=== PATIENT | female | born 1960 | race Caucasian/White ===

== ENCOUNTER 2024-10-12 07:02 | Outpatient (REF) | payer OTHER, SELFPAY ==
[2024-10-12 07:15] LABS: MANUAL DIFF FLAG NO
[2024-10-12 07:54] LABS: Basophils Percent Auto 0.4 % (0-2); Eosinophils Absolute Auto 0.3 X10*3/uL (0.0-0.4); Eosinophils Percent Auto 4.3 % (0-4); Hematocrit 38.6 % (37.0-47.0); Hemoglobin 13.8 g/dl (12.0-16.0); Imm Gran Abs Auto 0.01 X10*3/uL (0.00-0.03); Imm Gran Pct Auto 0.1 % (0.0-0.4); Lymphocytes Absolute Auto 2.9 X10*3/uL (1.2-4.9); Lymphocytes Percent Auto 40.9 % (20-40); Mean Corpuscular HGB Conc 35.8 g/dl (31.0-35.0); Mean Corpuscular Hemoglobin 31.8 pg (27.0-33.0); Mean Corpuscular Volume 88.9 fL (80.0-98.0); Mean Platelet Volume 10.5 fL (9.4-12.3); Monocytes Absolute Auto 0.7 X10*3/uL (0.1-1.2); Neutrophils Absolute Auto 3.1 x10*3/uL (2.0-8.3); Neutrophils Percent Auto 44.3 % (45-73); Platelet Count 296 X10*3/uL (160-400); Red Blood Count 4.34 X10*6/uL (4.20-5.50); Red Cell Distribution Width 11.9 % (11.0-16.0)
[2024-10-12 08:19] LABS: Alanine Aminotransferase 32 U/L (0-31); Albumin Level 4.2 g/dL (3.5-5.0); Alkaline Phosphatase 68 U/L (39-117); Anion Gap 13 (12-20); Aspartate Amino Transferase 32 U/L (5-31); Bilirubin Total 0.7 mg/dL (0.0-1.0); Blood Urea Nitrogen 27 mg/dL (9-16); Carbon Dioxide 29 mmol/L (22-29); Chloride 101 mmol/L (96-108); Cholesterol 164 mg/dL (<200); Estimated Glomerular Filt Rate > 60; Glucose Fasting 98 mg/dL (60-99); HDL Cholesterol 41 mg/dL (>40); LDL Cholesterol Calculated 94 mg/dL (<100); Potassium 3.9 mmol/L (3.3-5.1); Sodium 139 mmol/L (135-145); Total Protein 7.4 g/dL (6.5-8.0); Triglycerides 145 mg/dL (<150)
[2024-10-12 08:39] LABS: Vitamin D 25-OH Total 50.8 ng/mL (>30)
== END 2024-10-12 07:03 | disposition home or self-care (01) ==
LOC: HO.LAB 07:02
PROVIDERS: PCP Internal Medicine Medical Oncology; Visit Provider Internal Medicine Medical Oncology
DX: E55.9 Vitamin D deficiency, unspecified (principal); E78.5 Hyperlipidemia, unspecified
CPT/HCPCS: 36415; 80053; 80061; 82306; 85025

== ENCOUNTER 2024-11-23 11:25 | Outpatient (REF) | payer OTHER, SELFPAY ==
[2024-11-23 11:41] LABS: MANUAL DIFF FLAG NO
[2024-11-23 11:57] LABS: Basophils Percent Auto 0.2 % (0-2); Eosinophils Absolute Auto 0.3 X10*3/uL (0.0-0.4); Hematocrit 36.7 % (37.0-47.0); Hemoglobin 13.3 g/dl (12.0-16.0); Imm Gran Abs Auto 0.02 X10*3/uL (0.00-0.03); Imm Gran Pct Auto 0.2 % (0.0-0.4); Lymphocytes Absolute Auto 2.7 X10*3/uL (1.2-4.9); Mean Corpuscular HGB Conc 36.2 g/dl (31.0-35.0); Mean Corpuscular Hemoglobin 31.7 pg (27.0-33.0); Mean Corpuscular Volume 87.4 fL (80.0-98.0); Mean Platelet Volume 10.2 fL (9.4-12.3); Monocytes Absolute Auto 0.7 X10*3/uL (0.1-1.2); Monocytes Percent Auto 8.3 % (2-11); Neutrophils Absolute Auto 4.4 x10*3/uL (2.0-8.3); Neutrophils Percent Auto 54.3 % (45-73); Platelet Count 290 X10*3/uL (160-400); Red Cell Distribution Width 11.7 % (11.0-16.0); White Blood Count 8.1 X10*3/uL (4.8-10.8)
[2024-11-23 12:28] LABS: Appearance Urine Clear; Color Urine Yellow; Glucose Urine UA Negative (Negative); Leukocyte Esterase Urine Small (1+) (Negative); Nitrite Urine Negative (Negative); UMIC TRIGGER UA YES; Urine Blood Negative (Negative); Urine Ketones Negative (Negative); Urine Protein Negative (Neg-Trace)
[2024-11-23 12:35] LABS: Parathyroid Hormone Intact 45.2 pg/mL (8.7-77.1)
[2024-11-23 12:42] LABS: Alanine Aminotransferase 26 U/L (0-31); Albumin Level 4.1 g/dL (3.5-5.0); Alkaline Phosphatase 70 U/L (39-117); Anion Gap 11 (12-20); Aspartate Amino Transferase 26 U/L (5-31); Bilirubin Total 0.5 mg/dL (0.0-1.0); Blood Urea Nitrogen 27 mg/dL (9-16); Calcium 10.1 mg/dL (8.4-10.2); Carbon Dioxide 31 mmol/L (22-29); Chloride 100 mmol/L (96-108); Estimated Glomerular Filt Rate > 60; Glucose Random 102 mg/dL (60-115); Phosphorus 2.9 mg/dL (2.7-4.5); Potassium 3.6 mmol/L (3.3-5.1); Sodium 138 mmol/L (135-145); Total Protein 7.2 g/dL (6.5-8.0)
--- OUTSIDE RECORDS SUMMARY | 2024-11-23 12:56 | XMS_ITS | Encounter Summary ---
Author Organization [facility] Address [address] [address] Phone Care Team Providers Care Labour Market Economist Name Role Phone Carroll Gore MD Primary Care Provider Encounter Details Date Type Department Care Team (Late st Contact Info) Description 11/23/2024 Orders Only [facility] [place] [phone] [phone] Oracio Vital MD [facility] [address] Social History Tobacco Use Types Packs/Day Years Used Date Smoking Tobacco: Never Smokeless Tobacco: Never Alcohol Use Standard Drinks/Week Comments Yes 0 (1 standard drink = 0.6 oz pure alcohol) Alcoholic Drinks/day: Occasional social drink Comments Unknown Sex and Gender Information Value Date Recorded Sex Assigned at Not on file Legal Sex Female 5:22 PM EST Gender Identity Not on file Sexual Orientation Not on file documented as of this encounter Plan of Treatment Upcoming Encounters Date Type Department Care Team (Late st Contact Info) Description 12/05/2024 8:20 AM EDT Office Visit [facility] [address] [address] Oracio Vital MD [address] [address] Pending Results Name Type Priority Associated Diagnoses Date /Time Urinalysis with microscopic Lab Routine 11/23/2024 12:03 PM EDT Comprehensive Metabolic Panel Lab Routine 11/23/2024 11:39 AM EDT Phosphorus Lab Routine 11/23/2024 11: 39 AM EDT documented as of this encounter Procedures Procedure Name Priority Date/Time Associated Diagnosis Comments URINALYSIS WITH MICROSCOPIC Routine 11/23/2024 12:03 PM EDT PTH, INTACT (HC) Routine 11/23/2024 11:3 9 AM EDT CBC AND DIFFERENTIAL Routine 11/23/2024 11:39 AM EDT PHOSPHATE ( PHOSPHORUS) Routine 11/23/2024 11:39 AM EDT COMPREHENSIVE METABOLIC PANEL Routine 11/23/2024 11:39 AM EDT documented in this encounter Results * PTH, Intact (11/23/2024 11:39 AM EDT) Parathyroid Hormone, Intact 45.2 8.7 - 77.1 pg/mL See order comments 11/23/2024 11:3 9 AM EDT 11/23/2024 11:39 AM EDT us Oracio Vital MD LAB [id number] SOLICITED RESULTS Final Result [place] See order comments [place] [address] * (ABNORMAL) CBC and Differential (11/23/2024 11:39 AM EDT) WBC 8.1 4.8 - 10.8 X10*3/uL See order comments RBC 4.20 4.20 - 5.50 X10*6/uL See order comments Hgb 13.3 12.0 - 16.0 g/dl See order comments Hematocrit 36.7(L) 37.0 - 47.0 % See order comments MCV 87.4 80.0 - 98.0 fL See order comments MCH 31.7 27.0 - 33.0 pg See order comments MCHC 36.2(H) 31.0 - 35.0 g/dl See order comments RDW 11.7 11.0 - 16.0 % See order comments Platelets 290 160 - 400 X10*3/uL See order comments MPV 10.2 9.4 - 12.3 fL See order comments Neutrophils % Auto 54.3 45 - 73 % See order comments Immature Granulocytes 0.2 0.0 - 0.4 % See order comments Lymphocytes Relative 33.0 20 - 40 % See order comments Monocytes 8.3 2 - 11 % See order comments Eosinophils Relative 4.0 0 - 4 % See order comments Basophils Relative 0.2 0 - 2 % See order comments nRBC Count 0.0 0.0 - 0.2 /100WBC See order comments Neutrophils Absolute 4.4 2.0 - 8.3 x10*3/uL See order comments Immature Grans (Absolute) 0.02 0.00 - 0.03 X10*3/uL See order comments Lymphocytes Absolute 2.7 1.2 - 4.9 X10*3/uL See order comments Monocytes Absolute 0.7 0.1 - 1.2 X10*3/uL See order comments Eosinophils Absolute 0.3 0.0 - 0.4 X10*3/uL See order comments Basophils Absolute 0.0 0.0 - 0.2 X10*3/uL See order comments NRBC Absolute 0.000 0.0 - 0.012 X10*3/uL See order comments 11/23/2024 11:3 9 AM EDT 11/23/2024 11:39 AM EDT us Oracio Vital MD LAB BLOOD ORDERABLES Final Re sult [facility] See order comments [place] [address] documented in this encounter Visit Diagnoses Not on filedocumented in this encounter Care Teams Labour Market Economist Relationship Specialty Start Date End Date Carroll Gore MD [facility] [address] FINNIAMTHADDEUS BECKHAM PCP - General 07/29/20 documented as of this encounter
--- OUTSIDE RECORDS SUMMARY | 2024-11-23 12:56 | XMS_ITS | Clinical Summary ---
Author Organization [facility] Address [address] [facility] [address] [place] [address] Phone Care Team Providers Care Leadership Development Consultant Name Role Phone Carroll Gore MD Primary Care Provider [phone] Allergies Active Allergy Reactions Criticality Noted Date Comments Nitrofurantoin Other (see comments) 07/30/2021 Medications atorvastatin (LIPITOR) 20 MG tablet 1 tablet every night 5 Active cholecalciferol (VITAMIN D-3) 25 MCG (1000 UT) capsule Take 1 capsule by mouth 1 (one) time each day 7 Active loratadine (CLARITIN) 10 MG tablet 1 (one) time each day Active estradiol (ESTRACE) 0.1 MG/GM vaginal cream APPLY 1 GRAM VAGINALLY TWICE A WEEK FOR 90 DAYS 1 Active losartan (COZAAR) 100 MG tablet Take 100 mg by mouth 1 (one) time each day 1 Active calcium carbonate-vitam in D (OSCAL-500) 500-200 MG-UNIT per tablet Take 1 tablet by mouth 1 (one) time each day Active co-enzyme Q-10 30 MG capsule Take 30 mg by mouth 1 (one) time each day Active hydroCHLOROthia zide 25 MG tablet Take 1 tablet (25 mg total) by mouth 1 (one) time each day 30 tablet 11 3 Active Active Problems Problem Noted Date Diagnosed Date Stage 3a chronic kidney disease 11/16/2023 Obstructive nephropathy 11/16/2023 Dyslipidemia 11/16/2023 Hypertension 04/09/2022 Nephrolithiasis 04/08/2021 Simple renal cyst 04/07/2021 Resolved Problems Problem Noted Date Diagnosed Date Resolved Date Bilateral tinnitus 04/09/2022 Cholelithiasis without obstruction 04/09/2022 04/09/2022 Cyst of ovary 04/09/2022 11/16/2023 Diverticulitis 04/09/2022 11/16/2023 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 [address] [place] [phone] Oracio Vital MD from Last 3 Months Immunizations Immunization Administration Dates Next Due Pneumococcal Polysaccharide 05/10/2014, 4 TD Preservative Free 06/20/2020 Family History Medical History Relation Comments Autosomal Dominant Polycystic Kidney Disease Fat her Cancer Father liver Hypertension Father Kidney disease Father polycystic kidne y disease Diabetes Mother Heart disease Mother Hypertension Mother Hypertension Sibling 1 sister Kidney disease Sibling 2 brother/sister Relation Status Comments Father Mother Alive Sibling 1 Sibling 2 Social History Tobacco Use Types Packs/Day Years Used Date Smoking Tobacco: Never Smokeless Tobacco: Never Tobacco Cessation:Counseling Given: No Alcohol Use Standard Drinks/Week Comments Yes 0 (1 standard drink = 0.6 oz pure alcohol) Alcoholic Drinks/day: Occasional social drink Comments Unknown Sex and Gender Information Value Date Recorded Sex Assigned at Not on file Legal Sex Female 5:22 PM EST Gender Identity Not on file Sexual Orientation Not on file Last Filed Vital Signs Vital Sign Reading Time Taken Comments Blood Pressure 118/78 11/16/2023 9:40 AM EDT Pulse 80 11/16/2023 9:40 AM EDT Temperature - - Respiratory Rate - - Oxygen Saturation 98% 11/16/2023 9:40 AM EDT Inhaled Oxygen Concentration - - Weight 54.4 kg (120 lb) 11/16/2023 9:40 AM EDT Height 149.9 cm (4' 11 ) 11/16/2023 9:40 AM EDT Body Mass Index 24.24 11/16/2023 9:40 AM EDT Plan of Treatment Upcoming Encounters Date Type Department Care Team (Late st Contact Info) Description 12/05/2024 8:20 AM EDT Office Visit [facility] [address] [phone] Oracio Vital MD [address] [phone] Health Maintenance Due Date Last Done Comments Breast Cancer Screening 1961 Colorectal Cancer Screening: Annual FOBT 2010 Colorectal Cancer Screening: Colonoscopy 2010 Colorectal Cancer Screening: Sigmoidoscopy 2010 Pneumococcal Vaccine: 50+ Years (3 of 3 - PCV) 05/10/2015 05/10/2014, 04/24/2014 Influenza Vaccine (Season Ended) 2025 Pneumococcal Vaccine: Peds ( 0 to 5 Years) and At-Risk Patients (6 to 49 Years) Discontinued 05/10/2014, 04/24/2014 Hepatitis B Vaccine Aged Out No longe r eligible based on patient's age to complete this topic Procedures Procedure Name Priority Date/Time Associated Diagnosis Comments URINALYSIS WITH MICROSCOPIC Routine 11/23/2024 12:03 PM EDT PHOSPHATE ( PHOSPHORUS) Routine 11/23/2024 11:39 AM EDT COMPREHENSIVE METABOLIC PANEL Routine 11/23/2024 11:39 AM EDT PTH, INTACT (HC) Routine 11/23/2024 11:3 9 AM EDT CBC AND DIFFERENTIAL Routine 11/23/2024 11:39 AM EDT from Last 3 Months Results * PTH, Intact (11/23/2024 11:39 AM EDT) Parathyroid Hormone, Intact 45.2 8.7 - 77.1 pg/mL See order comments 11/23/2024 11:3 9 AM EDT 11/23/2024 11:39 AM EDT us Oracio Vital MD LAB [id number] SOLICITED RESULTS Final Result [place] See order comments [place] [address] * (ABNORMAL) CBC and Differential (11/23/2024 11:39 [...] MD LAB BLOOD ORDERABLES Final Re sult [place] See order comments [place] [address] from Last 3 Months Insurance Comprehensive Benefits Comprehensive Benefits Care Teams Leadership Development Consultant Relationship Specialty Start Date End Date Carroll Gore MD [address] [place] [address] [phone] [place], [place] PCP - General 07/29/20
--- OUTSIDE RECORDS SUMMARY | 2024-11-23 12:57 | XMS_ITS ---
Author Organization Carroll Gore III, MD Address [address] [place] [address] Care Team Providers Care Crosscutter Name Role Phone Carroll Gore Primary Care Provider [phone] Allergies Allergen (clinical drug ingredient) Drug/Non Drug Allergy documented on EMR Reaction Allergy Type Onset Date Status nitrofurantoin Nitrofurantoin Unknown Drug Allergy Active alendronate Alendronate Sodium Unknown Drug Allergy Active Results Component Value Reference Range Notes URINE DIP STICK Reviewed date:10/20/2024 10:13:11 AM Interpretation: Performing Lab: Notes/Report: SG 1.005 1.005 - 1.025 pH 7.0 5.0 - 9.0 NAYELI 70+ Negative - NIT Negative Negative - PRO 15 Negative - Trace GLU Negative Negative - KET negative Negative - UBG 0.2 0.1 - 1.8 CAROLYN Negative 0.2 - 1.3 BLD Negative Negative - Menstrating No REASON FOR VISIT Annual Exam Medications Medication SIG (Take, Route, Frequency, Duration) Notes Start Date End Date Status Atorvastatin Calcium 20 MG TAKE 1 TABLET BY MOUTH EVERY DAY Active Vitamin D 25 MCG (1000 UT) 1 tablet Oral ly Once a day Active hydroCHLOROthiazide 12.5 MG TAKE 1 TABLE T BY MOUTH EVERY DAY IN THE MORNING Active hydroCHLOROthiazide 25 MG TAKE 1 TABLET BY MOUTH 1 TIME EACH DAY. Active Losartan Potassium 100 MG TAKE 1 TABLET BY MOUTH EVERY DAY Active Calcium 1 tab Oral Active Claritin 5 MG 1 tablet Orally as needed Active Social History Tobacco Use: Social History Observation Description Date Details (start date - stop date) Never Smoker NA - NA Sex Assigned At : Social History Observation Description Sex Assigned At Female Tobacco Control (Standard) Question Answer Notes Tobacco use: Nonsmoker Additional Findings: Tobacco non-user Aggressive nonsmoker AUDIT-C (Standard) Question Answer Notes Did you have a drink contain ing alcohol in the past year? Yes How often did you have six o r more drinks on one occasion in the past year? 2 to 4 times a month (2 points) How many drinks did you have on a typical day when you were drinking in the past year? 1 or 2 drinks (0 point) How often did you have a dri nk containing alcohol in the past year? Never (0 point) Points 2 Interpretation Negative Vital Signs Temperature 97.9 degrees Fahrenheit 10/21/19 25 Blood pressure systolic 129 mm Hg 10/21/19 25 Blood pressure diastolic 77 mm Hg 025 Heart Rate 62 /min 10/20/2024 Height 59 in 10/20/2024 Weight 115 lbs 10/20/2024 BMI 23.22 kg/m2 10/20/2024 Encounters Encounter Location Date Provider Diagnosis Carroll Gore III, MD [address] [place] [address] [place] [address] 10/20/2024 Carroll Gore Essential hypertensi on I10 ; Hyperlipidemia, unspecified E78.5 ; Vitamin D deficiency E55.9 ; Calculus of gallbladder without cholecystitis without obstruction K80.20 ; Age-related osteoporosis without current pathological fracture M81.0 ; Hydroureter, left N13.4 and Cholelithiasis K80.20 Assessments Encounter Date Diagnosis (ICD Code) Assessment Notes Treat ment Notes Treatment Clinical Notes 10/20/2024 Essential hypertension (ICD-10 - I10) Her blood pressure is stable at 129/77. Her weight is in the normal range. No change in her regimen was necessary today. As will be followed carefully. 10/20/2024 Hyperlipidemia, unspecified (ICD-10 - E78.5) The current fasting lipid profile shows good control of her lipids. No change in her regimen was necessary. 10/20/2024 Vitamin D deficiency (ICD-10 - E55.9) The current vitamin D level is in the normal range. No change in her dosage was necessary. 10/20/2024 Calculus of gallbladder without cholecystitis without obstruction (ICD-10 - K80.20) There is no discomfort to palpation of the right side of the abdomen. 10/20/2024 Age-related osteoporosis without current pathological fracture (ICD-10 - M81.0) She is going to try alendronate. 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 The left kidney has become atrophic 10/20/2024 Cholelithiasis (ICD-10 - K80.20) She has known documented gallstones. An ultrasound of the abdomen to assess the gallbladder has been ordered. She will return to the office at once if the pain returns. Plan Of Treatment Medication Medication Name Sig Start Date Stop Date Notes Atorvastatin Calcium 20 MG TAKE 1 TABLET BY MOUTH EVERY DAY Vitamin D 25 MCG (1000 UT) 1 tablet Orally Once a day hydroCHLOROthiazide 12.5 MG TAKE 1 TABLE T BY MOUTH EVERY DAY IN THE MORNING hydroCHLOROthiazide 25 MG TAKE 1 TABLET BY MOUTH 1 TIME EACH DAY. Losartan Potassium 100 MG TAKE 1 TABLET BY MOUTH EVERY DAY Calcium 1 tab Oral Claritin 5 MG 1 tablet Orally as needed Pending Test Test Name Order Date PROFILE, FASTING (COMPREHENSIVE METABOLI C) 10/20/2024 CBC w DIFF 10/20/2024 Lipid Panel 10/20/2024 Vitamin D 25-OH Total 10/20/2024 Next Appt Details Follow Up: 4 Months, Reason: OV Provider Name:Carroll Gore, 02/20/2025 04:00:00 PM, [address] [place] [address] [address], [place], [id number], Provider Name:Carroll Gore, 10/22/2025 04:00:00 PM, [address] [place] [address] [address], [place], [id number], Progress Notes * Karen LITTLEDOB:[birth year] (64 yo F)Acc No.[id number]:10/20/2024 Progress Notes Patient:?Karen LITTLE Provider:?Carroll Gore MD :1960???Age:64 Y???Sex:Female D ate:10/20/2024 Address:[address] [place] [address] DR, [id number] Subjective: * Chief Complaints: * ???Annual Exam * HPI: ???Depression Screening:?mammo up to date colono u9p to date, obstetrician/gynecologist alma delia? renal campili, [facility] not known? [employer].? She returns to the office at the age of 64 for her annual physical examination.? She is up-to-date with colonoscopy and mammography.? She is up-to-date with her corporate executive, Dr. Lou. She has no new complaints.? She plans another trip to [facility] next March. She has had no new pain or shortness of breath bleeding cough fever or chest discomforts. She has a new strategic sourcing manager, Dr. Vital. ?PHQ-9?Little interest or pleasure in doing things?Not at all ?Feeling down, depressed, or hopeless?Not at all ?Trouble falling or staying asleep, or sleeping too much?Not at all ?Feeling tired or having little energy?Several days ?Poor appetite or overeating?Not at all ?Feeling bad about yourself or that you are a failure, or have let yourself or your family down?Not at all ?Trouble concentrating on things, such as reading the newspaper or watching television?Not at all ?Moving or speaking so slowly that other people could have noticed; or the opposite, being so fidgety or restless that you have been moving around a lot more than usual?Not at all ?Thoughts that you would be better off or of hurting yourself in some way?Not at all ?Total Score?1 ?Interpretation?Minimal Depression ???COVID-19 Screening:?Questions?Have you had any new onset fever, chills, cough, congestion, sore throat, shortness of breath, muscle aches??No ???SDOH Questions:?SDOH Questions?In the past year have you been worried about losing your housing??No ?In the past year have you or any family members you live with been unable to get any of the following when it was really needed? Check all that apply:?None * ROS:?General/Constitutional:?pain?only normal aches and pains.?Chills?denies.?Fatigue?admits.?Fever?denies.?ENT:?Decreased hearing?denies.?Respiratory:?Cough?denies.?Cardiovascular:?Chest pain with exertion?denies.?Dyspnea on exertion?denies.?Shortness of breath?denies.?Gastrointestinal:?Constipation?occasional.?Decreased appetite?denies.?Diarrhea?denies.?Heartburn?occasional.?Nausea?denies.?Rectal bleeding?denies.?Vomiting?denies.?Hematology:?bruising?denies.?petechiae?denies.?Swollen glands?none have been noted.?Genitourinary:?Frequent urination?at night.?Musculoskeletal:?Muscle aches?denies.?Painful joints?denies.?Sciatica?denies.?Weakness?denies.?Skin:?Itching?denies.?Rash?denies.?Skin lesion(s)?denies.?Neurologic:?Difficulty speaking?denies.?Dizziness?denies.?Headache?denies.?Low back pain?denies.?Psychiatric:?Depressed mood?denies.? * Medical History:? * Surgical History:?laparotomy for mesenteric fibrosis /2009No history * Hospitalization/Major Diagno stic Procedure:?No history * Family History:?Father: dece ased 74 yrs, kidney disease, hypertension, hyperlipidemia, liver cancer, diagnosed with HTN, Hyperlipidemia.?Mother: alive 81 yrs, diabetes mellitus, hypertension, rheumatoid arthritis, hyperlipidemia, cataract, diagnosed with Hyperlipidemia, DM, HTN.?1 brother(s) , 1 sister(s) . .? A brother was diagnosed with hepatitis as a child. A sister was diagnosed with hypertension. She has no children. * Social History:?Tobacco Use:?Tobacco Control (Standard)?Tobacco use:?Nonsmoker ?Additional Findings: Tobacco non-user?Aggressive nonsmoker ???Drugs/Alcohol:?Drugs?Have you used drugs other than those for medical reasons in the past 12 months??No ???Drug/Alcohol:?AUDIT-C (Standard)?Did you have a drink containing alcohol in the past year??Yes ?How often did you have six or more drinks on one occasion in the past year??2 to 4 times a month (2 points) ?How many drinks did you have on a typical day when you were drinking in the past year??1 or 2 drinks (0 point) ?How often did you have a drink containing alcohol in the past year??Never (0 point) ?Points?2 ?Interpretation?Negative ???She is working and has no children. She was [place]. * Medications:?TakingLosartan Potassium 100 MG Tablet TAKE 1 TABLET BY MOUTH EVERY DAY Calcium 1 tab Oral Claritin 5 MG Tablet Chewable 1 tablet Orally as needed Vitamin D 25 MCG (1000 UT) Tablet 1 tablet Orally Once a day Atorvastatin Calcium 20 MG Tablet TAKE 1 TABLET BY MOUTH EVERY DAY hydroCHLOROthiazide 25 MG Tablet TAKE 1 TABLET BY MOUTH 1 TIME EACH DAY. Taking Losartan Potassium 100 MG Tablet TAKE 1 TABLET BY MOUTH EVERY DAY Taking Calcium 1 tab Oral Taking Claritin 5 MG Tablet Chewable 1 tablet Orally as needed Taking Vitamin D 25 MCG (1000 UT) Tablet 1 tablet Orally Once a day Taking Atorvastatin Calcium 20 MG Tablet TAKE 1 TABLET BY MOUTH EVERY DAY Taking hydroCHLOROthiazide 25 MG Tablet TAKE 1 TABLET BY MOUTH 1 TIME EACH DAY. DiscontinuedPriLOSEC OTC 20 MG Tablet Delayed Release 1 tablet Orally as needed hydroCHLOROthiazide 12.5 MG Tablet TAKE 1 TABLET BY MOUTH EVERY DAY IN THE MORNING Medication List reviewed and reconciled with the patientDiscontinued PriLOSEC OTC 20 MG Tablet Delayed Release 1 tablet Orally as needed Discontinued hydroCHLOROthiazide 12.5 MG Tablet TAKE 1 TABLET BY MOUTH EVERY DAY IN THE MORNING Medication List reviewed and reconciled with the patient * Allergies:?NitrofurantoinAle ndronate Sodiumno[Allergies Verified] Objective: * Vitals:?Ht: 59, Wt: 115, BMI :23.22, BP: 129/77, HR: 62, Temp: 97.9, Wt-k.16. * ???Past Orders: Lab:Complete Blood Count Aut o Diff * Collection Date 10/12/2024 04/18/2024 11/10/2022 Collection Time 07:14 AM 07:48 AM 07:23 AM Order Date 10/12/2024 04/18/2024 11/10/2022 White Blood Count 7.0 (Ref Range: 4.8-10.8 X10*3/uL) 7.5 (Ref Range: 4.8-10.8 X10*3/uL) 7.6 (Ref Range: 4.8-10.8 X10*3/uL) Red Blood Count 4.34 (Ref Range: 4.20-5.50 X10*6/uL) 4.37 (Ref Range: 4.20-5.50 X10*6/uL) 4.44 (Ref Range: 4.20-5.50 X10*6/uL) Hemoglobin 13.8 (Ref Range: 12.0-16.0 g/dl) 13.8 (Ref Range: 12.0-16.0 g/dl) 13.7 (Ref Range: 12.0-16.0 g/dl) Hematocrit 38.6 (Ref Range: 37.0-47.0 %) 39.5 (Ref Range: 37.0-47.0 %) 40.1 (Ref Range: 37.0-47.0 %) Mean Corpuscular Volume 88.9 (Ref Range: 80.0-98.0 fL) 90.4 (Ref Range: 80.0-98.0 fL) 90.3 (Ref Range: 80.0-98.0 fL) Mean Corpuscular Hemoglobin 31.8 (Ref Range: 27.0-33.0 pg) 31.6 (Ref Range: 27.0-33.0 pg) 30.9 (Ref Range: 27.0-33.0 pg) Mean Corpuscular HGB Conc 35.8?H (Ref Range: 31.0-35.0 g/dl) 34.9 (Ref Range: 31.0-35.0 g/dl) 34.2 (Ref Range: 31.0-35.0 g/dl) Red Cell Distribution Width 11.9 (Ref Range: 11.0-16.0 %) 11.9 (Ref Range: 11.0-16.0 %) 11.6 (Ref Range: 11.0-16.0 %) Platelet Count 296 (Ref Range: 160-400 X10*3/uL) 282 (Ref Range: 160-400 X10*3/uL) 298 (Ref Range: 160-400 X10*3/uL) Mean Platelet Volume 10.5 (Ref Range: 9.4-12.3 fL) 10.7 (Ref Range: 9.4-12.3 fL) 10.3 (Ref Range: 9.4-12.3 fL) Neutrophils Percent Auto 44.3?L (Ref Range: 45-73 %) 47.7 (Ref Range: 45-73 %) 46.6 (Ref Range: 45-73 %) Imm Gran Pct Auto 0.1 (Ref Range: 0.0-0.4 %) 0.3 (Ref Range: 0.0-0.4 %) 0.4 (Ref Range: 0.0-0.4 %) Lymphocytes Percent Auto 40.9?H (Ref Range: 20-40 %) 38.3 (Ref Range: 20-40 %) 39.7 (Ref Range: 20-40 %) Monocytes Percent Auto 10.0 (Ref Range: 2-11 %) 9.8 (Ref Range: 2-11 %) 9.7 (Ref Range: 2-11 %) Eosinophils Percent Auto 4.3?H (Ref Range: 0-4 %) 3.5 (Ref Range: 0-4 %) 3.2 (Ref Range: 0-4 %) Basophils Percent Auto 0.4 (Ref Range: 0-2 %) 0.4 (Ref Range: 0-2 %) 0.4 (Ref Range: 0-2 %) NRBC Pct Auto 0.0 (Ref Range: 0.0-0.2 /100WBC) 0.0 (Ref Range: 0.0-0.2 /100WBC) 0.0 (Ref Range: 0.0-0.2 /100WBC) Neutrophils Absolute Auto 3.1 (Ref Range: 2.0-8.3 x10*3/uL) 3.6 (Ref Range: 2.0-8.3 x10*3/uL) 3.6 (Ref Range: 2.0-8.3 x10*3/uL) Imm Gran Abs Auto 0.01 (Ref Range: 0.00-0.03 X10*3/uL) 0.02 (Ref Range: 0.00-0.03 X10*3/uL) 0.03 (Ref Range: 0.00-0.03 X10*3/uL) Lymphocytes Absolute Auto 2.9 (Ref Range: 1.2-4.9 X10*3/uL) 2.9 (Ref Range: 1.2-4.9 X10*3/uL) 3.0 (Ref Range: 1.2-4.9 X10*3/uL) Monocytes Absolute Auto 0.7 (Ref Range: 0.1-1.2 X10*3/uL) 0.7 (Ref Range: 0.1-1.2 X10*3/uL) 0.7 (Ref Range: 0.1-1.2 X10*3/uL) Eosinophils Absolute Auto 0.3 (Ref Range: 0.0-0.4 X10*3/uL) 0.3 (Ref Range: 0.0-0.4 X10*3/uL) 0.2 (Ref Range: 0.0-0.4 X10*3/uL) Basophils Absolute Auto 0.0 (Ref Range: 0.0-0.2 X10*3/uL) 0.0 (Ref Range: 0.0-0.2 X10*3/uL) 0.0 (Ref Range: 0.0-0.2 X10*3/uL) NRBC Abs Auto 0.000 (Ref Range: 0.0-0.012 X10*3/uL) 0.000 (Ref Range: 0.0-0.012 X10*3/uL) 0.000 (Ref Range: 0.0-0.012 X10*3/uL) * Lab:M[facility] Sylvester. Gumaro l Fast * Collection Date 10/12/2024 04/18/2024 11/10/2022 Collection Time 07:14 AM 07:48 AM 07:23 AM Order Date 10/12/2024 04/18/2024 11/10/2022 Sodium 139 (Ref Range: 135-145 mmol/L) 141 (Ref Range: 135-145 mmol/L) 143 (Ref Range: 135-145 mmol/L) Bilirubin Total 0.7 (Ref Range: 0.0-1.0 mg/dL) 0.7 (Ref Range: 0.0-1.0 mg/dL) 0.8 (Ref Range: 0.0-1.0 mg/dL) Aspartate Amino Transferase 32?H (Ref Range: 5-31 U/L) 29 (Ref Range: 5-31 U/L) 23 (Ref Range: 5-31 U/L) Alanine Aminotransferase 32?H (Ref Range: 0-31 U/L) 32?H (Ref Range: 0-31 U/L) 24 (Ref Range: 0-31 U/L) Total Protein 7.4 (Ref Range: 6.5-8.0 g/dL) 7.6 (Ref Range: 6.5-8.0 g/dL) 7.1 (Ref Range: 6.5-8.0 g/dL) Albumin Level 4.2 (Ref Range: 3.5-5.0 g/dL) 4.3 (Ref Range: 3.5-5.0 g/dL) 4.3 (Ref Range: 3.5-5.0 g/dL) Alkaline Phosphatase 68 (Ref Range: 39-117 U/L) 66 (Ref Range: 39-117 U/L) 60 (Ref Range: 39-117 U/L) Potassium 3.9 (Ref Range: 3.3-5.1 mmol/L) 3.8 (Ref Range: 3.3-5.1 mmol/L) 4.3 (Ref Range: 3.3-5.1 mmol/L) Chloride 101 (Ref Range: 96-108 mmol/L) 100 (Ref Range: 96-108 mmol/L) 103 (Ref Range: 96-108 mmol/L) Carbon Dioxide 29 (Ref Range: 22-29 mmol/L) 31?H (Ref Range: 22-29 mmol/L) 30?H (Ref Range: 22-29 mmol/L) Anion Gap 13 (Ref Range: 12-20) 14 (Ref Range: 12-20) 14 (Ref Range: 12-20) Blood Urea Nitrogen 27?H (Ref Range: 9-16 mg/dL) 18?H (Ref Range: 9-16 mg/dL) 26?H (Ref Range: 9-16 mg/dL) Creatinine 0.86 (Ref Range: 0.5-1.4 mg/dL) 0.91 (Ref Range: 0.5-1.4 mg/dL) 0.99 (Ref Range: 0.5-1.4 mg/dL) Estimated Glomerular Filt Rate > 60 > 60 57 Glucose Fasting 98 (Ref Range: 60-99 mg/dL) 94 (Ref Range: 60-99 mg/dL) 92 (Ref Range: 60-99 mg/dL) Calcium 10.0 (Ref Range: 8.4-10.2 mg/dL) 10.1 (Ref Range: 8.4-10.2 mg/dL) 9.6 (Ref Range: 8.4-10.2 mg/dL) * Lab:Lipid Panel * Collection Date 10/12/2024 04/18/2024 11/10/2022 Collection Time 07:14 AM 07:48 AM 07:23 AM Order Date 10/12/2024 04/18/2024 11/10/2022 Triglycerides 145 (Ref Range: <150 mg/dL) 277?H (Ref Range: <150 mg/dL) 208 (Ref Range: mg/dL) Cholesterol 164 (Ref Range: <200 mg/dL) 192 (Ref Range: <200 mg/dL) 191 (Ref Range: mg/dL) LDL Cholesterol Calculated 94 (Ref Range: <100 mg/dL) 95 (Ref Range: <100 mg/dL) 105 (Ref Range: mg/dl) HDL Cholesterol 41 (Ref Range: >40 mg/dL) 42 (Ref Range: >40 mg/dL) 45 (Ref Range: mg/dL) * Lab:Vitamin D 25-OH Total * Collection Date 10/12/2024 06/24/2022 02/17/2022 Collection Time 07:14 AM 07:46 AM 09:59 AM Order Date 10/12/2024 06/24/2022 02/17/2022 Vitamin D 25-OH Total 50.8 (Ref Range: >30 ng/mL) 45.6 (Ref Range: >30 ng/mL) 41.4 (Ref Range: >30 ng/mL) * Lab:URINE DIP STICK * Collection Date 10/20/2024 07/02/2023 06/26/2022 Order Date 10/20/2024 07/02/2023 06/26/2022 Result: Normal SG 1.005 (Ref Range: 1.005 - 1.025) 1.015 (Ref Range: 1.005 - 1.025) 1.010 pH 7.0 (Ref Range: 5.0 - 9.0) 6.0 (Ref Range: 5.0 - 9.0) 6 NAYELI 70+ (Ref Range: Negative -) 125 (Ref Range: Negative -) neg NIT Negative (Ref Range: Negative -) Negative (Ref Range: Negative -) neg PRO 15 (Ref Range: Negative - Trace) 15 (Ref Range: Negative - Trace) trace GLU Negative (Ref Range: Negative -) Negative (Ref Range: Negative -) normal KET negative (Ref Range: Negative -) Negative (Ref Range: Negative -) neg UBG 0.2 (Ref Range: 0.1 - 1.8) 0.2 (Ref Range: 0.1 - 1.8) normal CAROLYN Negative (Ref Range: 0.2 - 1.3) Negative (Ref Range: 0.2 - 1.3) neg BLD Negative (Ref Range: Negative -) Positive (Ref Range: Negative -) neg Menstrating No No n/a * Examination: ???General Examination: ?GENERAL APPEARANCE:?pleasant, well nourished, well developed, in no acute distress, calm and relaxed, woman.?HEAD:?atraumatic, normocephalic.?EYES:?eomi, perrla, anicteric, conjugate.?EARS:?normal.?NOSE:?septum intact.?ORAL CAVITY:?normal, unremarkable.?NECK/THYROID:?no jugular venous distention, no carotid bruit, thyroid normal.?LYMPH NODES:?no enlarged lymph nodes,spleen normal.?SKIN:?no suspicious lesions, anicteric.?HEART:?no clicks, gallops, murmurs, or rubs, regular rhythm, S1, S2 normal, no s3, or vascular bruits.?LUNGS:?clear to auscultation .?BREASTS:?Prefers AQUACULTURIST.?ABDOMEN:?bowel sounds normal, no ascites, no organomegaly, no mass.?RECTAL EXAM:?not examined.?MUSCULOSKELETAL:?extremities unremarkable, no clubbing, cyanosis or edema.?PERIPHERAL PULSES:?normal.?NEUROLOGIC:?alert and oriented, cranial nerves 2-12 grossly intact, deep tendon reflexes 2+ symmetrical, motor strength normal upper and lower extremities, sensory exam intact.?PSYCH:?alert, oriented.? Assessment: * Assessment: 1.?Essential hypertension - I10 (Primary)???Notes :Her blood pressure is stable at 129/77.? Her weight is in the normal range.? No change in her regimen was necessary today.? As will be followed carefully.???2.?Hyperlipidemia, unspecified - E78.5???Notes :The current fasting lipid profile shows good control of her lipids.? No change in her regimen was necessary.???3.?Vitamin D deficiency - E55.9???Notes :The current vitamin D level is in the normal range.? 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 The left kidney has become atrophic???7.?Cholelithiasis - K80.20???Notes :She has known documented gallstones. An ultrasound of the abdomen to assess the gallbladder has been ordered. She will return to the office at once if the pain returns.??? Plan: * Treatment: 2.?Hyperlipidemia, unspecifi ed?LAB: PROFILE, FASTING (COMPREHENSIVE METABOLIC) ?LAB: CBC w DIFF ?LAB: Lipid Panel ?LAB: Vitamin D 25-OH Total 3.?Vitamin D deficiency?LAB: Vitamin D 25-OH Total 4.?Others? Continue Atorvastatin Calcium Tablet, 20 MG, TAKE 1 TABLET BY MOUTH EVERY DAY;?Continue Losartan Potassium Tablet, 100 MG, TAKE 1 TABLET BY MOUTH EVERY DAY;?Continue Calcium, 1 tab, Oral; Continue Claritin Tablet Chewable, 5 MG, 1 tablet, Orally, as needed;?Continue Vitamin D Tablet, 25 MCG (1000 UT), 1 tablet, Orally, Once a day;?Continue hydroCHLOROthiazide Tablet, 12.5 MG, TAKE 1 TABLET BY MOUTH EVERY DAY IN THE MORNING.?? * Labs:? * ?Lab: URINE DIP STICK (C ollection Date & Time - 10/20/2024) ? Value Reference Range ?SG 1.005 1.005 - 1.025 * ?pH 7.0 5.0 - 9.0 * ?NAYELI 70+ Negative - * ?NIT Negative Negative - * ?PRO 15 Negative - Trac e * ?GLU Negative Negative - * ?KET negative Negative - * ?UBG 0.2 0.1 - 1.8 * ?CAROLYN Negative 0.2 - 1.3 * ?BLD Negative Negative - * ?Menstrating No * Procedure Codes:?11509 URINE -NO MICRO * Follow Up:?4 Months (Reason: OV) * Images: * Sign off status: Completed true * Provider:?Carroll Gore MD Date:?10/2024 Generated for Benjamin shay/Aria/eTransmitting on:?11/23/2024 12:57 PM EDT History and Physical Notes * HPI (History of Present Illness) Category Sub-Category Detail Notes Depression Screening PHQ-9 Little inte rest or pleasure in doing things: Not at all Feeling down, depressed, or hopeless: No t at all Trouble falling or staying asleep, or sl eeping too much: Not at all Feeling tired or having little energy: S everal days Poor appetite or overeating: Not at all Feeling bad about yourself o r that you are a failure, or have let yourself or your family down: Not at all Trouble concentrating on thi ngs, such as reading the newspaper or watching television: Not at all Moving or speaking so slowly that other people could have noticed; or the opposite, being so fidgety or restless that you have been moving around a lot more than usual: Not at all Thoughts that you would be b yang off or of hurting yourself in some way: Not at all Total Score: 1 Interpretation: Minimal Depression COVID-19 Screening Questions Have you had any new onset fever, chills, cough, congestion, sore throat, shortness of breath, muscle aches?: No SDOH Questions SDOH Questions In the past year have you been worried about losing your housing?: No In the past year have you or any family members you live with been unable to get any of the following when it was really needed? Check all that apply:: None Examination Category Sub-Category Detail Notes General Examination GENERAL APPEARANCE: pleasant , well nourished, well developed, in no acute distress, calm and relaxed, woman HEAD: atraumatic, normocep halic EYES: eomi, perrla, anicte justa, conjugate EARS: normal NOSE: septum intact NECK/THYROID: no jugular venous di stention, no carotid bruit, thyroid normal HEART: no clicks, gallops, murmurs, or rubs, regular rhythm, S1, S2 normal, no s3, or vascular bruits LUNGS: clear to auscultatio n ABDOMEN: bowel sounds normal, no ascites, no organomegaly, no mass NEUROLOGIC: alert and oriented, cranial nerves 2-12 grossly intact, deep tendon reflexes 2+ symmetrical, motor strength normal upper and lower extremities, sensory exam intact SKIN: no suspicious lesion s, anicteric PERIPHERAL PULSES: normal BREASTS: Prefers AQUACULTURIST MUSCULOSKELETAL: extremities unremark able, no clubbing, cyanosis or edema LYMPH NODES: no enlarged lymph no ziggy,spleen normal RECTAL EXAM: not examined PSYCH: alert, oriented ORAL CAVITY: normal, unremarkable
--- OUTSIDE RECORDS SUMMARY | 2024-11-23 12:57 | XMS_ITS ---
Author Organization Carroll Gore III, MD Address [address] [address] Care Team Providers Care Card Brusher Name Role Phone Carroll Gore Primary Care Provider REASON FOR VISIT Annual Exam Social History Sex Assigned At : Social History Observation Description Sex Assigned At Female Encounters Encounter Location Date Provider Diagnosis Carroll Gore III, MD [address] [place] [address] [place] [address] 10/17/2024 Carroll Gore Plan Of Treatment Next Appt Details Provider Name:Carroll Gore, 02/20/2025 04:00:00 PM, [address] [place] [address] [place], [address], Provider Name:Carroll Gore, 10/22/2025 04:00:00 PM, [address] [place] [address] [place], [address], Progress Notes * Karen LITTLEDOB:[birth year] (64 yo F)Acc No.[id number]:10/17/2024 Progress Notes Patient:Karen OJEDA Provider:?Carroll Gore MD :1960???Age:64 Y???Sex:Female D ate:10/17/2024 Address:[address] [place], [place] [id number] Subjective: * Chief Complaints: * ???1. Annual Exam. * Medical History:? Objective: * Vitals:? Assessment: Plan: * Treatment: * Images: * The named appointment provid er may or may not be the originator of this progress note, and it is not deemed complete until electronically signed by the appointment provider. Sign off status: Pending * Provider:?Carroll Gore MD Date:?07/2024 Generated for Benjamin shay/Aria/Meganitting on:?11/23/2024 12:57 PM EDT
--- OUTSIDE RECORDS SUMMARY | 2024-11-23 12:57 | XMS_ITS ---
Author Organization [facility] Address [address] [address] Care Team Providers Care Intelligent Systems Engineer Name Role Phone SLADE NIXON MD Primary Care Provider Lizette Norman Unavailable [phone] Allergies Allergen (clinical drug ingredient) Drug/Non Drug Allergy documented on EMR Reaction Allergy Type Onset Date Status nitrofurantoin, macrocrystals / nitrofurantoin, monohydrate MACROBID Unknown Drug Allergy Active Results Component Value Reference Range Notes Urinalysis Reviewed date:02/29/2024 09:50:48 AM Interpretation: Performing Lab: Notes/Report: PH 8.0 PROTEIN Neg GLUCOSE Neg BLOOD Neg REASON FOR VISIT Annual SERIALS LIBRARIAN Physical, Annual SERIALS LIBRARIAN Physical 60-85+ Medications Medication SIG (Take, Route, Frequency, Duration) Notes Start Date End Date Status Anusol-HC 2.5 % 1 application to affected area Rectal Twice a day as needed for 30 day(s) 02/07/2021 Active Calcium 500 MG 1 tablet with meals Orally Twice a day Active Atenolol 25 MG 1 tablet Orally Once a day for 30 day(s) Active Claritin 10 MG 1 tablet Orally seasonal Season Active Vitamin D 1000 UNIT 1 tablet Orally Once a day Active CoQ-10 100 MG 1 capsule with a coral l Orally Once a day Active Losartan Potassium-HCTZ 100-12.5 MG 1 tablet Orally Once a day Active Atorvastatin Calcium 20 MG 1 tablet Oral ly Once a day Active hydroCHLOROthiazide 25 MG TAKE 1 TABLET BY MOUTH 1 TIME EACH DAY. Oral for 90 Days Active Estradiol 0.1 MG/GM APPLY 1 GRAM VAGINALLY TWICE A WEEK FOR 90 DAYS for 90 Active Social History Tobacco Use: Social History Observation Description Date Details (start date - stop date) Never Smoker NA - NA AUDIT-C (Standard) Question Answer Notes Did you have a drink contain ing alcohol in the past year? Yes How often did you have six o r more drinks on one occasion in the past year? Never (0 point) How many drinks did you have on a typical day when you were drinking in the past year? 1 or 2 drinks (0 point) How often did you have a dri nk containing alcohol in the past year? 2 to 4 times a month (2 points) Points 2 Interpretation Negative Tobacco Control (Standard) Question Answer Notes Tobacco use: Nonsmoker Vital Signs Temperature 97.9 degrees Fahrenheit 02/29/20 24 Blood pressure systolic 128 mm Hg 02/29/20 24 Blood pressure diastolic 80 mm Hg 024 Height 58 in 02/29/2024 Weight 119 lbs 02/29/2024 BMI 24.87 kg/m2 02/29/2024 Encounters Encounter Location Date Provider Diagnosis [address] [address] 02/29/2024 Lizette Cabral Encounter for gynecological examination (general) (routine) without abnormal findings Z01.419 ; Encounter for screening mammogram for malignant neoplasm of breast Z12.31 ; Age-related osteoporosis without current pathological fracture M81.0 ; Postmenopausal atrophic vaginitis N95.2 and Personal history of cervical dysplasia Z87.410 Assessments Encounter Date Diagnosis (ICD Code) Assessment Notes Treatment Notes Treatment Clinical Notes Section Notes 02/29/2024 Encounter for gynecological examination (general) (routine) without abnormal findings (ICD-10 - Z01.419) NO PAP TEST, DUE IN 2025. 02/29/2024 Encounter for screening mammogram for malignant neoplasm of breast (ICD-10 - Z12.31) REGULAR MAMMOGRAMS AND SBE'S WERE RECOMMENDED. 02/29/2024 Age-related osteoporosis without current pathological fracture (ICD-10 - M81.0) DISCUSSED OSTEOPOROSIS AND ITS IMPACT ON HER HEALTH. ADEQUATE CALCIUM AND VIT D. WEIGHT BEARING EXERCISES. OSTEO PRECAUTIONS. REPEAT BMD THIS DEC. 02/29/2024 Postmenopausal atrophic vaginitis (ICD-10 - N95.2) CONTINUE ESTRADIOL CREAM. SHE WILL CALL FOR REFILLS. 02/29/2024 Personal history of cervical dysplasia (ICD-10 - Z87.410) DISCUSSED PREVIOUS HX OF TOMEKA AND SUBSEQUENTLY NEGATIVE PAP TESTS. REPEAT PAP TEST IN 2025. Plan Of Treatment Treatment Notes Assessment Notes Encounter for gynecological examination (general) (routine) without abnormal findings NO PAP TEST, DUE IN 2025. Encounter for screening mamm ogram for malignant neoplasm of breast REGULAR MAMMOGRAMS AND SBE'S WERE RECOMMENDED. Age-related osteoporosis wit hout current pathological fracture DISCUSSED OSTEOPOROSIS AND ITS IMPACT ON HER HEALTH. ADEQUATE CALCIUM AND VIT D. WEIGHT BEARING EXERCISES. OSTEO PRECAUTIONS. REPEAT BMD THIS JUN. Postmenopausal atrophic vaginitis CONTIN UE ESTRADIOL CREAM. SHE WILL CALL FOR REFILLS. Personal history of cervical dysplasia DISCUSSED PREVIOUS HX OF TOMEKA AND SUBSEQUENTLY NEGATIVE PAP TESTS. REPEAT PAP TEST IN 2025. Pending Test Test Name Order Date MAMMOGRAM, SCREENING 02/29/2024 BONE DENSITY 02/29/2024 MM Digital Mammo Screening 02/29/2024 Next Appt Details Follow Up: 1 Year, Reason: Provider Name:Lizette barbosa, 03/06/2025 08:00:00 AM, [address] [place] [address], [address], [place], [address], Progress Notes * ASHLEY LITTLEDOB:[birth year] (63 yo F)Acc No.[id number]:02/29/2024 PROGRESS NOTES Patient:?ASHLEY LITTLE Appointment Provider:?Lizette barbosa M.D. :1960???Age:63 Y???Sex:Female D ate:02/29/2024 Address:[address] [place], [place] [id number] Pcp:SLADE NIXON MD Subjective: * Chief Complaints: * ???Annual SERIALS LIBRARIAN PhysicalAnnual SERIALS LIBRARIAN Physical 60-85+ * HPI: ???New/Follow-up Patient Consult:? BLANCA ENTERED MENOPAUSE AT AGE 53.? SHE IS USING ESTRADIOL CREAM FOR ATROPOHIC VAGINITIS AND HAS NOTED DECREASED DYSPAREUNIA.? SHE ALSO USES ALOE CADABRA. S/P CRYOTHERAPY FOR TOMEKA IN 1996.? SUBSEQUENT PAP TESTS HAVE BEEN NEGATIVE.? ?HER LAST PAP TEST IN 2022 WAS NEGATIVE AND HPV NEGATIVE. SHE UNDERWENT SMALL BOWEL RESECTION FOR A BENIGN TUMOR IN 2008. HER LAST MAMMOGRAM DONE IN JUN 2023 SHOWED DENSE BREASTS AND WAS NORMAL.? HER LIFETIME BREAST CA RISK IS 8.7%. SHE IS OSTEOPOROTIC WITH T-SCORES OF -2.7 AT THE SPINE AND -2.6 AT THE FEMORAL NECK ON HER LAST BMD IN 2021.? SHE REFUSED BIPHOSPHANATES.? WE WILL REPEAT HER BMD THIS YEAR. SHE HAD COLONOSCOPIES DONE IN 2018 AND 2023. MODERNA X 3. ???Annual:? Patient presents for annual exam, ages 60-85, postmenopausal. ?General Health Maintenance:?Current breast complaints:?no breast pain, mass, discharge, or skin changes ?Urinary problems:?patient reports no urinary health problems or bowel health problems ?Calcium intake:?takes adequate calcium via diet and supplementation ?Significant SERIALS LIBRARIAN problems:?no significant physician gynecologist symptoms or problems * ROS:?general:?no?chest pain.?no?palpitations.?no?headache.?no?cough.?no?shortness of breath.?no?fever.?no?unexplained weight loss.?no?nausea/vomiting.?no?change in bowel movements.?no blood in stool.?no?genitourinary complaints.?no?skin complaints.? * Medical History:? * Mobile Tester History:?/ Para?0/0.?Sexual activity?currently sexually active.?Last Pap Smear:?02/17/23 NIL, NEG HPV, 02/07/21 Anal Pap No Interpretation Possible, 02/02/20 NIL, NEG HPV, No Ecc's, 10/26/16 NEG HRHPV, 08/09/14 neg, 06/18/2013, neg without HPV test.?Mammogram:?06/2023 with [facility], 07/07/22 50-75% density, 05/21/21 50-75% density, 03/2020, 10/13/18 50-75% density, 08/2016 50-75% density, normal, 08/23/15 @ [facility], 08/08/14 6 MONTH FOLLOW UP MAMMO 02/2015, > 75% density.?LMP and menses?D[place]oll 07/2013.? Control:?None.?Menopause: ?Began at age: ?53 ???Endoscopy *?0/0.?Colonoscopy?08/19/23 Q 10 Years Now, 2019, q 5 years, 2013, polyps.?Bone Density:?11/24/21.?SERIALS LIBRARIAN HISTORY MISC.?Loly = 8.7%, 10/28/16 Lifetime Risk Assessment Form Mailed to Patient to Complete and Mail to Office to Calculate Risk.? * OB History:?Total pregnancies?0.? * Surgical History:?Small sharon l resection 2009Colonoscopy * Hospitalization/Major Diagno stic Procedure:?See Surgical Hx * Family History:?Mother: frances bell, diagnosed with Unspecified heart disease in 60.?Father: , Suicide after Dx Liver Cancer, Polycystic Kidney.?Paternal uncle: , diagnosed with Other malignant neoplasm of unspecified site.?1 sister(s) . .? Sister: HTN, renal disease. * Social History:?Tobacco Use:?Tobacco Control (Standard)?Tobacco use:?Nonsmoker ???Sexual History:?Sexual History?Had sex in the past 12 months (vaginal, oral, or anal)?: Yes, with: Men only, Use protection?: No, Have you ever had a Sexually transmitted disease?: No.?Details of Sexual History?Are you sexually active??Yes ???Drugs/Alcohol:?Drugs?Have you used drugs other than those for medical reasons in the past 12 months??No ???Miscellaneous:?Children: no. ?Domestic violence: no. ?Exercise: n/a. ?Home smoke detector use: yes. ?Marital status: , in relationship with male partnersince 2006. ?Natural support system: yes. 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 ?Sexual abuse: no. ?Sexually active: yes, monogamous relationship. ?Verbal abuse: no. ???Drug/Alcohol:?AUDIT-C (Standard)?Did you have a drink containing alcohol in the past year??Yes ?How often did you have six or more drinks on one occasion in the past year??Never (0 point) ?How many drinks did you have on a typical day when you were drinking in the past year??1 or 2 drinks (0 point) ?How often did you have a drink containing alcohol in the past year??2 to 4 times a month (2 points) ?Points?2 ?Interpretation?Negative * Medications:?TakingCalcium 5 00 MG Tablet 1 tablet with meals Orally Twice a day Atenolol 25 MG Tablet 1 tablet Orally Once a day Anusol-HC 2.5 % Cream 1 application to affected area Rectal Twice a day as needed Estradiol 0.1 MG/GM Cream APPLY 1 GRAM VAGINALLY TWICE A WEEK FOR 90 DAYS hydroCHLOROthiazide 25 MG Tablet TAKE 1 TABLET BY MOUTH 1 TIME EACH DAY. Oral Losartan Potassium-HCTZ 100-12.5 MG Tablet 1 tablet Orally Once a day Atorvastatin Calcium 20 MG Tablet 1 tablet Orally Once a day Vitamin D 1000 UNIT Tablet 1 tablet Orally Once a day CoQ-10 100 MG Capsule 1 capsule with a meal Orally Once a day Claritin 10 MG Tablet 1 tablet Orally seasonal , Notes to Pharmacist: SeasonTaking Calcium 500 MG Tablet 1 tablet with meals Orally Twice a day Taking Atenolol 25 MG Tablet 1 tablet Orally Once a day Taking Anusol-HC 2.5 % Cream 1 application to affected area Rectal Twice a day as needed Taking Estradiol 0.1 MG/GM Cream APPLY 1 GRAM VAGINALLY TWICE A WEEK FOR 90 DAYS Taking hydroCHLOROthiazide 25 MG Tablet TAKE 1 TABLET BY MOUTH 1 TIME EACH DAY. Oral Taking Losartan Potassium-HCTZ 100-12.5 MG Tablet 1 tablet Orally Once a day Taking Atorvastatin Calcium 20 MG Tablet 1 tablet Orally Once a day Taking Vitamin D 1000 UNIT Tablet 1 tablet Orally Once a day Taking CoQ-10 100 MG Capsule 1 capsule with a meal Orally Once a day Taking Claritin 10 MG Tablet 1 tablet Orally seasonal , Notes to Pharmacist: SeasonDiscontinuedTurmeric 400 MG Capsule as directed Orally , Notes to Pharmacist: Liquid FormMetroGel-Vaginal 0.75 % Gel 1 application at bedtime Vaginal EVERY NIGHT X 5 Medication List reviewed and reconciled with the patientDiscontinued Turmeric 400 MG Capsule as directed Orally , Notes to Pharmacist: Liquid FormDiscontinued MetroGel-Vaginal 0.75 % Gel 1 application at bedtime Vaginal EVERY NIGHT X 5 Medication List reviewed and reconciled with the patient * Allergies:?MACROBID: Allergy no[Allergies Verified] Objective: * Vitals:?Ht: 58 in, Wt:119lbs , BMI:24.87Index, BP:128/80mm Hg, Temp:97.9F. * Examination: ???General Exam: ?CONSTITUTIONAL:?General Appearance:?alert, in no acute distress, normal, well nourished ?NECK/THYROID:?Inspection/Palpation:?normal ?Thyroid:?normal size and shape ?RESPIRATORY:?Auscultation: clear to auscultation bilaterally, Respiratory Effort: normal.?CARDIOVASCULAR:?Auscultation: regular rate and rhythm.?BREAST, Right:?Inspection/Palpation:?no discharge, no masses present, no nipple retraction, no skin changes, no skin dimpling, no tenderness, no lymphadenopathy, no axillary mass, no axillary tenderness ?BREAST, Left:?Inspection/Palpation:?no discharge, no masses present, no nipple retraction, no skin changes, no skin dimpling, no tenderness, no lymphadenopathy, no axillary mass, no axillary tenderness ?GASTROINTESTINAL:?Abdomen:?no masses, nontender, nondistended ?Liver and Spleen:?normal ?Hernias:?no hernias present, no inguinal adenopathy ?MUSCULOSKELETAL:?Inspection/Palpation:?no clubbing, cyanosis, or edema ?SKIN:?Skin:?normal ?NEURO/PSYCH:?Orientation:?time , place, person ?Mood/Affect:?normal?Genitourinary: ?EXTERNAL GENITALIA:?External Genitalia:?normal, no lesions ?VAGINA:?Vagina:?normal appearance, no abnormal discharge, no lesions ?BLADDER:?Bladder:?no mass, nontender ?URETHRA:?Urethra:?no erythema or lesions present ?CERVIX:?Cervix:?no lesions, nontender ?UTERUS:?Uterus:?nontender, normal contour, normal mobility, normal size ?ADNEXA:?Adnexa:?no masses, no tenderness ?ANUS AND PERINEUM:?Anus/Perineum:?visually normal??? Assessment: * Assessment: 1.?Encounter for gynecologic al examination (general) (routine) without abnormal findings - Z01.419???2.?Encounter for screening mammogram for malignant neoplasm of breast - Z12.31???3.?Age-related osteoporosis without current pathological fracture - M81.0???4.?Postmenopausal atrophic vaginitis - N95.2???5.?Personal history of cervical dysplasia - Z87.410??? Plan: * Treatment: ? Value Reference Range ?PH 8.0 * ?PROTEIN Neg * ?GLUCOSE Neg * ?BLOOD Neg * D.KYRA 02/29/2024 08:07:52 AM EDT > Notes: NO PAP TEST, DUE IN 2025.??2.?Encounter for screening mammogram for malignant neoplasm of breast?Imaging: MM Digital Mammo Screening Notes: REGULAR MAMMOGRAMS AND SBE'S WERE RECOMMENDED.??3.?Age-related osteoporosis without current pathological fracture?Imaging: BONE DENSITY Notes: DISCUSSED OSTEOPOROSIS AND ITS IMPACT ON HER HEALTH. ADEQUATE CALCIUM AND VIT D. WEIGHT BEARING EXERCISES. OSTEO PRECAUTIONS. REPEAT BMD THIS JUN.??4.?Postmenopausal atrophic vaginitis? Notes: CONTINUE ESTRADIOL CREAM. SHE WILL CALL FOR REFILLS.??5.?Personal history of cervical dysplasia? Notes: DISCUSSED PREVIOUS HX OF TOMEKA AND SUBSEQUENTLY NEGATIVE PAP TESTS. REPEAT PAP TEST IN 2025.?? * Imaging:? * ?Imaging: MAMMOGRAM, SCR EENING * Procedure Codes:? * Preventive Medicine:? ??YOUR PREVENTIVE WELLNESS PLAN:?Osteoporosis prevention?Calcium, D, strength training.?Breast Cancer Screening (Mammogram):?annually.?Cervical Cancer Screening (Pap Smear):?q 3 years with HPV screen.?Colorectal Cancer Screening:?q 10 years.? * Follow Up:?1 Year * Images: Billing Information: * Visit Code:? [id number] Preventive Care Est Pt. Age 65 and over. * Procedure Codes:? * Sign off status: Completed true * Appointment Provider:?Lizette Cabral M.D. Date:?02/29/2024 Generated for Benjamin shay/Aria/eTmaximussmitting on:?11/23/2024 12:56 PM EDT History and Physical Notes * HPI (History of Present Illness) Category Sub-Category Detail Notes Category Not es New/Follow-up Patient Consult BLANCA ENTERED MENOPAUSE AT AGE 53. SHE IS USING ESTRADIOL CREAM FOR ATROPOHIC VAGINITIS AND HAS NOTED DECREASED DYSPAREUNIA. SHE ALSO USES ALOE CADABRA. S/P CRYOTHERAPY FOR TOMEKA IN 1996. SUBSEQUENT PAP TESTS HAVE BEEN NEGATIVE. HER LAST PAP TEST IN 2022 WAS NEGATIVE AND HPV NEGATIVE. SHE UNDERWENT SMALL BOWEL RESECTION FOR A BENIGN TUMOR IN 2008. HER LAST MAMMOGRAM DONE IN JUN 2023 SHOWED DENSE BREASTS AND WAS NORMAL. HER LIFETIME BREAST CA RISK IS 8.7%. SHE IS OSTEOPOROTIC WITH T-SCORES OF -2.7 AT THE SPINE AND -2.6 AT THE FEMORAL NECK ON HER LAST BMD IN 2021. SHE REFUSED BIPHOSPHANATES. WE WILL REPEAT HER BMD THIS YEAR. SHE HAD COLONOSCOPIES DONE IN 2018 AND 2023. MODERNA X 3. Annual General Health Maintenance: Current breast complaints:: no breast pain, mass, discharge, or skin changes Urinary problems:: patient r eports no urinary health problems or bowel health problems Calcium intake:: takes adequ ate calcium via diet and supplementation Significant SERIALS LIBRARIAN problems:: n o significant physician gynecologist symptoms or problems Examination Category Sub-Category Detail Notes Category Not es General Exam CONSTITUTIONAL: General Appearan ce:: alert, in no acute distress, normal, well nourished NECK/THYROID: Thyroid:: normal size and shape Inspection/Palpation:: normal RESPIRATORY: Auscultation: clear to auscultation bilaterally, Respiratory Effort: normal CARDIOVASCULAR: Auscultation: regula r rate and rhythm GASTROINTESTINAL: Hernias:: no hernias present, no inguinal adenopathy Liver and Spleen:: normal Abdomen:: no masses, nontender, nondiste nded MUSCULOSKELETAL: Inspection/Palpation:: no clubb ing, cyanosis, or edema SKIN: Skin:: normal NEURO/PSYCH: Mood/Affect:: normal Orientation:: time , place, person BREAST, Right: Inspection/Palpation :: no discharge, no masses present, no nipple retraction, no skin changes, no skin dimpling, no tenderness, no lymphadenopathy, no axillary mass, no axillary tenderness BREAST, Left: Inspection/Palpation :: no discharge, no masses present, no nipple retraction, no skin changes, no skin dimpling, no tenderness, no lymphadenopathy, no axillary mass, no axillary tenderness Genitourinary EXTERNAL GENITALIA: External Genitalia:: nor mal, no lesions VAGINA: Vagina:: normal appearance, no a bnormal discharge, no lesions BLADDER: Bladder:: no mass, nontender URETHRA: Urethra:: no erythema or lesions present CERVIX: Cervix:: no lesions, nontender UTERUS: Uterus:: nontender, normal conto ur, normal mobility, normal size ADNEXA: Adnexa:: no masses, no tendernes s ANUS AND PERINEUM: Anus/Perineum:: visually norm al
--- OUTSIDE RECORDS SUMMARY | 2024-11-23 12:57 | XMS_ITS | Patient Health Record ---
Author Organization [facility] [facility] Address [address] [address] Care Team Providers Care Shredding Floor Equipment Operator Name Role Phone SLADE NIXON MD Primary Care Provider Lizette Norman Unavailable [phone] Allergies Allergen (clinical drug ingredient) Drug/Non Drug Allergy documented on EMR Reaction Allergy Type Onset Date Status nitrofurantoin, macrocrystals / nitrofurantoin, monohydrate MACROBID Unknown Drug Allergy Active Results Component Value Reference Range Notes Urinalysis Reviewed date:02/29/2024 09:50:48 AM Interpretation: Performing Lab: Notes/Report: PH 8.0 PROTEIN Neg GLUCOSE Neg BLOOD Neg Reason For Referral No Information Medications Medication SIG (Take, Route, Frequency, Duration) Notes Start Date End Date Status Estradiol 0.1 MG/GM APPLY 1 GRAM VAGINALLY TWICE A WEEK FOR 90 DAYS for 90 Active hydroCHLOROthiazide 25 MG TAKE 1 TABLET BY MOUTH 1 TIME EACH DAY. Oral for 90 Days Active Anusol-HC 2.5 % 1 application to affected [...] tablet Oral ly Once a day Active Social History Tobacco Use: Social History [...] (Standard) Question Answer Notes Tobacco use: Nonsmoker Problems Problem Type SNOMED Code ICD Code Onset Dates Problem Status W/U Status Risk Notes Problem Postmenopausal atrophic vaginitis (65503807) Postmenopausal atrophic vaginitis (N95.2) Active confirmed Problem Age-related osteoporosis (097404268) Age-related osteoporosis without current pathological fracture (M81.0) Active confirmed Problem Screening for malignant neoplasm of breast (630073049) Encounter for screening mammogram for malignant neoplasm of breast (Z12.31) Active confirmed Problem History of dysplasia of cervix (917909354) Personal history of cervical dysplasia (Z87.410) Active confirmed Problem Carcinoid syndrome (11036752) Carcinoid syndrome (259.2) Active confirmed Major Problem Hyperlipidemia (84732239) Other and unspecified hyperlipidemia (272.4) Active confirmed Major Problem Essential hypertension (56068050) Unspecified essential hypertension (401.9) Active confirmed Major Problem Urinary tract infectious disease (disorder) (39028983) Urinary tract infection, site not specified (599.0) Active confirmed Diag Problem Metrorrhagia (46463142) Metrorrhagia (626.6) Active confirmed Major Vital Signs Temperature 97.9 degrees Fahrenheit 02/29/2024 Blood pressure diastolic 80 mm Hg 02/29/2024 Height 58 in 02/29/2024 Blood pressure systolic 128 mm Hg 02/29/2024 Weight 119 lbs 02/29/2024 BMI 24.87 kg/m2 02/29/2024 Encounters Encounter Location Date Provider Diagnosis Total [address] [address] 02/29/2024 Lizette Cabral Encounter for gynecological examination [...] EXERCISES. OSTEO PRECAUTIONS. REPEAT BMD THIS JUN. 02/29/2024 Postmenopausal atrophic vaginitis (ICD-10 - N95.2) CONTINUE ESTRADIOL CREAM. SHE WILL CALL FOR REFILLS. 02/29/2024 Personal history of cervical dysplasia (ICD-10 - Z87.410) DISCUSSED PREVIOUS HX OF TOMEKA AND SUBSEQUENTLY NEGATIVE PAP TESTS. REPEAT PAP TEST IN 2025. Plan Of Treatment Pending Test Test Name Order Date MAMMOGRAM, SCREENING 02/10/2022 MAMMOGRAM, SCREENING 02/17/2023 MAMMOGRAM, SCREENING 02/29/2024 Urinalysis 02/02/2020 Urinalysis 02/07/2021 25OH VITAMIN D 02/10/2022 COMPREHENSIVE METABOLIC PANEL 02/10/2022 N-TELOPEPTIDE CROSS 02/10/2022 PTH, INTACT 02/10/2022 THIN PREP,HPV,[place]Y IF HPV+ (>29YR)(SCRN) 11/04/2017 THIN PREP,HPV,BARRY IF HPV+/CYT- (>29YR)( SCRN) 10/26/2016 TSH 02/10/2022 BONE DENSITY 02/29/2024 MM Digital Mammo Screening 02/29/2024 MM Digital Mammo Screening 02/17/2023 MM Digital Mammo Screening 10/26/2016 MM Digital Mammo Screening 12/21/2018 MM Digital Mammo Screening 02/07/2021 MM Digital Mammo Screening 02/10/2022 MM Digital Mammo Screening 02/02/2020 Next Appt Details Provider Name:Lizette barbosa, 03/06/2025 08:00:00 AM, [address], [address], [place], [address], Insurance Providers Payer Name Payer Address Payer Phone Subscriber Number Group Number Insured Name Patient Relationship to Insured Coverage Start Date Coverage End Date [employer] [facility] [address] [address] [place] [address] [id number] ASHLEY LITTLE Self - patient is the insured Medical (General) History Medical History History ICD Code 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) Urinary tract infection, site not specif ied N39.0 Other hyperlipidemia E78.4 Excessive and frequent menstruation with irregular cycle N92.1 Essential (primary) hypertension I10 Carcinoid syndrome E34.0 Postmenopausal atrophic vaginitis N95.2 Personal history of cervical dysplasia Z 87.410 Inconclusive mammogram R92.2 Age-related osteoporosis without current pathological fracture M81.0 Disorder of bone density and structure, unspecified M85.9 Mammographic heterogeneous density, bila teral breasts R92.333 Surgical History Surgery Date(Month/Year) Small bowel resection 2008 Colonoscopy Hospitalization History Reason Date(Month/Year) See Surgical Hx
--- OUTSIDE RECORDS SUMMARY | 2024-11-23 12:57 | XMS_ITS | Clinical Summary ---
Author Organization [facility] Address [address] [place] [address] Phone Care Team Providers Care Temporary Office Assistant Name Role Phone Unavailable Primary Care Provider Unavailabl e Social History Tobacco Use Types Packs/Day Years Used Date Smoking Tobacco: Never Assessed Comments No Sex and Gender Information Value Date Recorded Sex Assigned at Not on file Legal Sex Female 1:05 PM EST Gender Identity Not on file Sexual Orientation Not on file Obstetrics History Last Filed Vital Signs Vital Sign Reading Time Taken Comments Blood Pressure - - Pulse - - Temperature - - Respiratory Rate - - Oxygen Saturation - - Inhaled Oxygen Concentration - - Weight 52.6 kg (116 lb) 08/11/2024 8:41 AM EST Height 149.9 cm (4' 11 ) 08/11/2024 8:41 AM EST Body Mass Index 23.43 08/11/2024 8:41 AM EST Plan of Treatment Health Maintenance Due Date Last Done Comments Cervical Cancer Screening: Pap Smear 1982 Pneumococcal Vaccine: 50+ Years (2 of 2 - PCV) 05/10/2015 05/10/2014, 04/24/2014 Cholesterol Screening (Lipid Panel) 06/16/2022 Colorectal Cancer Screening: Colonoscopy 06/16/2022 Depression Screening 06/16/2022 HIV Screening 06/16/2022 Hepatitis C Screening 06/16/2022 Social Influencers of Health Screening 06/16/2022 COVID-19 Vaccine ( season) 2024 02/20/2022, 06/30/2021, 09/10/2020, Additional history exists Hypertension/CHF/CAD Annual BMP Blood Test 2024 Influenza Vaccine (Season Ended) 2025 05/21/2023, 06/26/2022, 05/21/2020, Additional history exists Breast Cancer Screening 08/11/2026 08/11/19, 07/15/2023, 07/07/2022, Additional history exists DTaP,Tdap,and Td Vaccines (2 - Td or Tdap) 06/20/2030 06/20/2020 RSV Immunization Adult Patients (1 - 1-dose 75+ series) 2036 Pneumococcal Vaccine: Pediatrics (0 to 5 Years) and At-Risk Patients (6 to 64 Years) Aged Out 05/10/2014, 04/24/2014 No longer eligibl e based on patient's age to complete this topic Zoster Vaccines Completed 05/12/2019, 02/19/2019 HIB Vaccines Aged Out No longer eligi ble based on patient's age to complete this topic HPV Vaccines Aged Out No longer eligi ble based on patient's age to complete this topic Hepatitis A Vaccines Aged Out No long er eligible based on patient's age to complete this topic Hepatitis B Vaccines Aged Out No long er eligible based on patient's age to complete this topic IPV Vaccines Aged Out No longer eligi ble based on patient's age to complete this topic MMR Vaccines Aged Out No longer eligi ble based on patient's age to complete this topic Meningococcal ACWY Vaccine Aged Out N o longer eligible based on patient's age to complete this topic Meningococcal B Vaccine Aged Out No l onger eligible based on patient's age to complete this topic RSV Immunization Patients Under 20 months Aged Out No longer eligible based on patient's age to complete this topic Varicella Vaccines Aged Out No longer eligible based on patient's age to complete this topic Procedures Procedure Name Priority Date/Time Associated Diagnosis Comments MG MAMMO DIGITAL SCREENING W PALOMO BILAT Routine 08/11/2024 8:50 AM EST Encounter for screening mammogram for breast cancer from Last 3 Months or Most Recently Relevant to Health Maintenance Results * MG Mammo Digital Screening w Palomo bilat (08/11/2024 8:50 AM EST) Anatomical Region Laterality Modality Breast Bilateral Mammography 08/11/2024 8:53 AM EST Impressions 08/11/2024 8:57 AM EST No mammographic evidence of malignancy. A negative mammogram in the presence of a clinically suspicious palpable abnormality does not preclude the possibility of malignancy or alter the indications for biopsy. PQRI CPT II 3341F Code 67066, 74741 PQRI 225 CPT II 7025F TISSUE DENSITY: The breasts are heterogeneously dense, which may obscure small masses. (BI-RADS category C) IMPRESSION: Benign. BI-RADS CATEGORY: 1 - NEGATIVE RECOMMENDATION: Screening bilateral mammogram is recommended in 1 year. Mammo Location: [facility], [address] [place] [address] -------- FINAL REPORT -------- Dictated By: Ray Durand Dictated Date: 08/11/2024 08:53 ET Assigned Physician: Ray Durand Reviewed and Electronically Signed By: Ray Durand Signed Date: 08/11/2024 08:57 ET Workstation ID: [id number] Transcribed By: Self Edit Transcribed Date: 08/11/2024 08:54 ET Narrative 08/11/2024 8:57 AM EST CLINICAL: The patient is a 63 years Female presenting for routine screening mammography. COMPARISON: Most recently 07/15/2023 and most remotely 09/10/2016. ?? TECHNIQUE: Full-field digital mammography of the breasts bilaterally consisting of tomosynthesis in MLO and CC projection is performed in the [employer] 2000-D unit. ??Computer aided detection utilizing the [employer] system was utilized. FINDINGS: The breasts are again seen to be composed of a combination of fatty and moderately dense fibroglandular elements. ??There is no cluster of microcalcifications, mass, or area of architectural distortion. There is no skin thickening or nipple retraction. Procedure Note Ray Durand MD - 08/11/2024 CLINICAL: The patient is a 63 years Female presenting for routinescreening mammography. COMPARISON: Most recently 07/15/2023 and most remotely 09/10/2016. TECHNIQUE: Full-field digital mammography of the breasts bilaterallyconsisting of tomosynthesis in MLO and CC projection is performed in the[employer] 2000-D unit. Computer aided detection utilizing the iCADsystem was utilized. FINDINGS: The breasts are again seen to be composed of a combination offatty and moderately dense fibroglandular elements. There is no clusterof microcalcifications, mass, or area of architectural distortion. Thereis no skin thickening or nipple retraction. IMPRESSION: No mammographic evidence of malignancy. A negative mammogram in the presence of a clinically suspicious palpableabnormality does not preclude the possibility of malignancy or alter theindications for biopsy. PQRI CPT II 3341F Code 23080, 49802 PQRI 225 CPT II 7025F TISSUE DENSITY: The breasts are heterogeneously dense, which may obscuresmall masses. (BI-RADS category C) IMPRESSION: Benign. BI-RADS CATEGORY: 1 - NEGATIVE RECOMMENDATION: Screening bilateral mammogram is recommended in 1 year. Mammo Location: [facility], [address] [place] [address] -------- FINAL REPORT -------- Dictated By: Ray Durand Dictated Date: 08/11/2024 08:53 ET Assigned Physician: Ray Durand Reviewed and Electronically Signed By: Ray Durand Signed Date: 08/11/2024 08:57 ET Workstation ID: [id number] Transcribed By: Self Edit Transcribed Date: 08/11/2024 08:54 ET us Self Referral Sppl IMG BI PROCEDURES Final Resul t from Last 3 Months or Most Recently Relevant to Health Maintenance Insurance [employer] 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 Health Care Decision (hx) 02/07/2014 AD HERNANDEZ DIRECTIVE Health Care Decision (hx) 02/07/2014 AD HERNANDEZ DIRECTIVE Health Care Decision (hx) 02/07/2014 AD HERNANDEZ DIRECTIVE Health Care Decision (hx) 02/07/2014 AD HERNANDEZ DIRECTIVE Health Care Decision (hx) 02/07/2014 AD HERNANDEZ DIRECTIVE Health Care Decision (hx) 02/07/2014 AD HERNANDEZ DIRECTIVE Health Care Decision (hx) 02/07/2014 AD HERNANDEZ DIRECTIVE Health Care Decision (hx) 02/07/2014 AD HERNANDEZ DIRECTIVE Health Care Decision (hx) 02/07/2014 AD HERNANDEZ DIRECTIVE Health Care Decision (hx) 02/07/2014 AD HERNANDEZ DIRECTIVE Health Care Decision (hx) 02/07/2014 AD HERNANDEZ DIRECTIVE Health Care Decision (hx) 02/07/2014 AD HERNANDEZ DIRECTIVE Health Care Decision (hx) 02/07/2014 AD HERNANDEZ DIRECTIVE Health Care Decision (hx) 01/09/2009 AD HERNANDEZ DIRECTIVE Health Care Decision (hx) 01/09/2009 AD HERNANDEZ DIRECTIVE Health Care Decision (hx) 01/09/2009 AD HERNANDEZ DIRECTIVE Health Care Decision (hx) 01/09/2009 AD HERNANDEZ DIRECTIVE Health Care Decision (hx) 01/09/2009 AD HERNANDEZ DIRECTIVE Health Care Decision (hx) 01/09/2009 AD HERNANDEZ DIRECTIVE Health Care Decision (hx) 01/09/2009 AD HERNANDEZ DIRECTIVE Health Care Decision (hx) 01/09/2009 AD HERNANDEZ DIRECTIVE Health Care Decision (hx) 01/09/2009 AD HERNANDEZ DIRECTIVE Health Care Decision (hx) 01/09/2009 AD HERNANDEZ DIRECTIVE Health Care Decision (hx) 01/09/2009 AD HERNANDEZ DIRECTIVE Health Care Decision (hx) 01/09/2009 AD HERNANDEZ DIRECTIVE Health Care Decision (hx) 01/09/2009 AD HERNANDEZ DIRECTIVE
--- OUTSIDE RECORDS SUMMARY | 2024-11-23 12:57 | XMS_ITS ---
Author Organization Carroll Gore III, MD Address [address] [place] [address] Care Team Providers Care Crts Name Role Phone Carroll Gore Primary Care Provider REASON FOR VISIT Annual Exam Social History Sex Assigned At : Social History Observation Description Sex Assigned At Female Encounters Encounter Location Date Provider Diagnosis Carroll Gore III, MD [address] [place] [address] [place] [address] 07/05/2024 Carroll Gore Plan Of Treatment Next Appt Details Provider Name:Carroll Gore, 02/20/2025 04:00:00 PM, [address] [place] [address] [place], [address], Provider Name:Carroll Gore, 10/22/2025 04:00:00 PM, [address] [place] [address] [place], [address], Progress Notes * Karen LITTLEDOB:[birth year] (64 yo F)Acc No.[id number]:07/05/2024 Progress Notes Patient:Karen OJEDA Provider:?Carroll Gore MD :1960???Age:63 Y???Sex:Female D ate:07/05/2024 Address:[address] [place], [place] [id number] Subjective: * Chief Complaints: * ???1. Annual Exam. * Medical History:? Objective: * Vitals:? Assessment: Plan: * Treatment: * Images: * The named appointment provid er may or may not be the originator of this progress note, and it is not deemed complete until electronically signed by the appointment provider. Sign off status: Pending * Provider:?Carroll Gore MD Date:?06/18 Generated for Benjamin shay/Aria/Annelsmitting on:?11/23/2024 12:57 PM EDT
--- OUTSIDE RECORDS SUMMARY | 2024-11-23 12:57 | XMS_ITS | Patient Health Record ---
Author Organization Carroll Gore III, MD Address [address] [place] [address] [place] [address] Care Team Providers Care Bpm Solution Architect Name Role Phone Carroll Gore Primary Care Provider Allergies Allergen (clinical drug ingredient) Drug/Non Drug [...] 1.3 BLD Negative Negative - Menstrating No Complete Blood Count Auto Di ff Reviewed date:05/22/2024 05:49:30 AM Interpretation: Performing Lab:[facility], [address] [place] [phone] Notes/Report: White Blood Count 7.5 4.8-10.8 X10*3/uL Red Blood Count 4.37 4.20-5.50 X10*6/uL Hemoglobin 13.8 12.0-16.0 g/dl Hematocrit 39.5 37.0-47.0 % Mean Corpuscular Volume 90.4 80.0-98.0 fL Mean Corpuscular Hemoglobin 31.6 27.0-33.0 pg Mean Corpuscular HGB Conc 34.9 31.0-35.0 g/dl Red Cell Distribution Width 11.9 11.0-16.0 % Platelet Count 282 160-400 X10*3/uL Mean Platelet Volume 10.7 9.4-12.3 fL Neutrophils Percent Auto 47.7 45-73 % Imm Gran Pct Auto 0.3 0.0-0.4 % Lymphocytes Percent Auto 38.3 20-40 % Monocytes Percent Auto 9.8 2-11 % Eosinophils Percent Auto 3.5 0-4 % Basophils Percent Auto 0.4 0-2 % NRBC Pct Auto 0.0 0.0-0.2 /100WBC Neutrophils Absolute Auto 3.6 2.0-8.3 x10*3/u L Imm Gran Abs Auto 0.02 0.00-0.03 X10*3/uL Lymphocytes Absolute Auto 2.9 1.2-4.9 X10*3/u L Monocytes Absolute Auto 0.7 0.1-1.2 X10*3/uL Eosinophils Absolute Auto 0.3 0.0-0.4 X10*3/u L Basophils Absolute Auto 0.0 0.0-0.2 X10*3/uL NRBC Abs Auto 0.000 0.0-0.012 X10*3/uL Comprehensive [place]. Panel Fa st Reviewed date:05/22/2024 05:49:30 AM Interpretation: Performing Lab:[facility], [address] [place] [phone] Notes/Report: Sodium 141 135-145 mmol/L Potassium 3.8 3.3-5.1 mmol/L Chloride 100 96-108 mmol/L Carbon Dioxide 31 22-29 mmol/L Anion Gap 14 12-20 Blood Urea Nitrogen 18 9-16 mg/dL Creatinine 0.91 0.5-1.4 mg/dL Estimated Glomerular Filt Rate > 60 NOTE: For -Marshallese individuals, multiply the result by 1.210. Chronic Kidney Disease: Estimated GFR < 60 mL/min/1.73m2 Severe Kidney Disease: Estimated GFR < 15 mL/min/1.73m2 Glucose Fasting 94 60-99 mg/dL Calcium 10.1 8.4-10.2 mg/dL Bilirubin Total 0.7 0.0-1.0 mg/dL Aspartate Amino Transferase 29 5-31 U/L Alanine Aminotransferase 32 0-31 U/L Total Protein 7.6 6.5-8.0 g/dL Albumin Level 4.3 3.5-5.0 g/dL Alkaline Phosphatase 66 39-117 U/L Lipid Panel Reviewed date:05/22/2024 05:49:30 AM Interpretation: Performing Lab:[address] [phone] Notes/Report: Triglycerides 277 <150 mg/dL Desirable Triglyceride: less than 150 mg/dL Borderline High Triglyceride 150-199 mg/dL High Triglyceride: 200-499 mg/dL Very High Triglyceride: greater than or equal to 5OO mg/dL Cholesterol 192 <200 mg/dL Desirable Cholesterol: less than 200 mg/dL Borderline High Cholesterol: 200-239 mg/dL High Cholesterol: greater than 239 mg/dL LDL Cholesterol Calculated 95 <100 mg/dL Desirable LDL: less than 100 mg/dL Near Optimal/Above Optimal LDL: 110-129 mg/dL Borderline High LDL: 130-159 mg/dL High LDL: 160-189 mg/dL Very High LDL: greater than or equal to 190 mg/dL HDL Cholesterol 42 >40 mg/dL Desirable HDL: greater than 40 mg/dL Note: This HDL assay may give artificially low results in patients with liver disease. Complete Blood Count Auto Di ff Reviewed date:10/14/2024 08:01:18 AM Interpretation: Performing Lab:[address] [phone] Notes/Report: White Blood Count 7.0 4.8-10.8 X10*3/uL Red Blood Count 4.34 4.20-5.50 X10*6/uL Hemoglobin 13.8 12.0-16.0 g/dl Hematocrit 38.6 37.0-47.0 % Mean Corpuscular Volume 88.9 80.0-98.0 fL Mean Corpuscular Hemoglobin 31.8 27.0-33.0 pg Mean Corpuscular HGB Conc 35.8 31.0-35.0 g/dl Red Cell Distribution Width 11.9 11.0-16.0 % Platelet Count 296 160-400 X10*3/uL Mean Platelet Volume 10.5 9.4-12.3 fL Neutrophils Percent Auto 44.3 45-73 % Imm Gran Pct Auto 0.1 0.0-0.4 % Lymphocytes Percent Auto 40.9 20-40 % Monocytes Percent Auto 10.0 2-11 % Eosinophils Percent Auto 4.3 0-4 % Basophils Percent Auto 0.4 0-2 % NRBC Pct Auto 0.0 0.0-0.2 /100WBC Neutrophils Absolute Auto 3.1 2.0-8.3 x10*3/u L Imm Gran Abs Auto 0.01 0.00-0.03 X10*3/uL Lymphocytes Absolute Auto 2.9 1.2-4.9 X10*3/u L Monocytes Absolute Auto 0.7 0.1-1.2 X10*3/uL Eosinophils Absolute Auto 0.3 0.0-0.4 X10*3/u L Basophils Absolute Auto 0.0 0.0-0.2 X10*3/uL NRBC Abs Auto 0.000 0.0-0.012 X10*3/uL Comprehensive [place]. Panel Fa st Reviewed date:10/14/2024 08:01:18 AM Interpretation: Performing Lab:[facility], [address] [place] [phone] Notes/Report: Sodium 139 135-145 mmol/L Potassium 3.9 3.3-5.1 mmol/L Chloride 101 96-108 mmol/L Carbon Dioxide 29 22-29 mmol/L Anion Gap 13 12-20 Blood Urea Nitrogen 27 9-16 mg/dL Creatinine 0.86 0.5-1.4 mg/dL Estimated Glomerular Filt Rate > 60 Chronic Kidney Disease: Estimated GFR < 60 mL/min/1.73m2 Severe Kidney Disease: Estimated GFR < 15 mL/min/1.73m2 Glucose Fasting 98 60-99 mg/dL Calcium 10.0 8.4-10.2 mg/dL Bilirubin Total 0.7 0.0-1.0 mg/dL Aspartate Amino Transferase 32 5-31 U/L Alanine Aminotransferase 32 0-31 U/L Total Protein 7.4 6.5-8.0 g/dL Albumin Level 4.2 3.5-5.0 g/dL Alkaline Phosphatase 68 39-117 U/L Lipid Panel Reviewed date:10/14/2024 08:01:18 AM Interpretation: Performing Lab:[address] [phone] Notes/Report: Triglycerides 145 <150 mg/dL Desirable Triglyceride: less than 150 mg/dL Borderline High Triglyceride 150-199 mg/dL High Triglyceride: 200-499 mg/dL Very High Triglyceride: greater than or equal to 5OO mg/dL Cholesterol 164 <200 mg/dL Desirable Cholesterol: less than 200 mg/dL Borderline High Cholesterol: 200-239 mg/dL High Cholesterol: greater than 239 mg/dL LDL Cholesterol Calculated 94 <100 mg/dL Desirable LDL: less than 100 mg/dL Near Optimal/Above Optimal LDL: 110-129 mg/dL Borderline High LDL: 130-159 mg/dL High LDL: 160-189 mg/dL Very High LDL: greater than or equal to 190 mg/dL HDL Cholesterol 41 >40 mg/dL Desirable HDL: greater than 40 mg/dL Note: This HDL assay may give artificially low results in patients with liver disease. Vitamin D 25-OH Total Reviewed date:10/14/2024 08:01:18 AM Interpretation: Performing Lab:[address] [phone] Notes/Report: Vitamin D 25-OH Total 50.8 >30 ng/mL Health Based Reference Values* < 20 ng/mL Deficient 20-30 ng/mL Insufficient > 30 ng/mL Sufficient *Daniel LOMELI. N Engl J Med. 2007;357:266-280 There is no well-established upper level of normal vitamin D levels. Some laboratories use 50 ng/mL as an upper limit of normal. However, toxicity is patient-dependent and may occur at any level. Careful correlation with the patient's presentation is necessary and, if there is concern for vitamin D toxicity, treatment should be considered irrespective of the serum level. Care must be taken in interpreting Vitamin D results from different laboratories and methodologies. Published data demonstrated that results from patients undergoing hemodialysis may show a negative bias when tested with various automated 25-OH vitamin D assays when compared to LC-MS/MS. When testing samples from patients whose predominant form of Vitamin D is Vitamin D2, such as patients receiving Vitamin D2 supplementation, results that are subtherapeutic should be confirmed with another method such as LC-MS/MS. Reason For Referral No Information Medications Medication SIG (Take, Route, Frequency, Duration) Notes Start Date End Date Status Losartan Potassium 100 MG TAKE 1 TABLET BY MOUTH EVERY DAY Active Calcium 1 tab Oral Active Atorvastatin Calcium 20 MG TAKE 1 TABLET BY MOUTH EVERY DAY Active Vitamin D 25 MCG (1000 UT) 1 tablet Oral ly Once a day Active hydroCHLOROthiazide 12.5 MG TAKE 1 TABLE T BY MOUTH EVERY DAY IN THE MORNING Active hydroCHLOROthiazide 25 MG TAKE 1 TABLET BY MOUTH 1 TIME EACH DAY. Active Claritin 5 MG 1 tablet Orally as needed Active Immunizations Vaccine Route Administration Date Status Comme nts Pneumococcal Unknown 05/10/2014 Administered Influenza IM Intramuscular 06/03/2016 Administered Influenza no Preserv 3 and > IM Intramuscular 08/31/2017 Administered Influenza no Preserv 3 and > IM Intramuscular 08/11/2019 Administered Tetanus and Diphtheria Toxoids Adsorbed IM Intramuscular 06/20/2020 Administered SHINGRIX Unknown 05/12/2019 Administered SHINGRIX Unknown 02/19/2019 Administered COVID- 19 Vaccine Unknown 09/10/2020 Administered COVID- 19 Vaccine Unknown 06/30/2021 Administered COVID- 19 Vaccine Unknown 08/13/2020 Administered COVID- 19 Vaccine Unknown 02/20/2022 Administered Influenza no Preserv 3 and > Unknown 06/26/2022 Administered Influenza, quad Unknown 06/26/2022 Administered Influenza, quad Unknown 05/21/2023 Administered Social History Tobacco Use: Social History Observation [...] Never (0 point) Points 2 Interpretation Negative Problems Problem Type SNOMED Code ICD Code Onset Dates Problem Status W/U Status Risk Notes Problem 62727065 Hyperlipidemia, unspecified (E78.5) Active confirmed The current fasting lipid profile shows good control of her lipids. No change in her regimen was necessary. Problem 8901938138925 Tinnitus, bilateral (H93.13) Active confirmed The tinnitus is intermittent and mild and is not bothering her at this time. Problem [id number] Calculus of gallbladder without cholecystitis without obstruction (K80.20) Active confirmed There is no discomfort to palpation of the right side of the abdomen. Problem 64492770 Age-related osteoporosis without current pathological fracture (M81.0) Active confirmed She is rivka g to try alendronate. Problem 738074191 Solitary pulmonary nodule (R91.1) Active confirmed She has one or 2 pulmonary nodules which are small and have not enlarged on serial CT. These will be observed. Problem 06839027 Essential hypertension (I10) Active confirmed Her blood pressure is stable at 129/77. Her weight is in the normal range. No change in her regimen was necessary today. As will be followed carefully. Problem Cholelithiasis (297273689) Cholelithiasis (K80.20) Active confirmed She has known documented gallstones. An ultrasound of the abdomen to assess the gallbladder has been ordered. She will return to the office at once if the pain returns. Problem 49512826 Other and unspecified ovarian cyst (N83.20) Active confirmed She has seen her dry cleaner hand recently and is being followed for this problem. She is asymptomatic. Problem Vitamin D deficiency (76134274) Vitamin D deficiency (E55.9) Active confirmed The current vitamin D level is in the normal range. No change in her dosage was necessary. Problem 630629815 Herpes zoster without complication (B02.9) Active confirmed She is responding very well to the medication with a loss of erythema and a reduction in pain and no new lesions. She will finish the medication. Problem 15729588 Hydronephrosis, unspecified hydronephrosis type (N13.30) Active confirmed The recent images are stable and her renal function function has improved slightly. She is known to have hydronephrosis of the left kidney likely due to the mesenteric fibrosis for which she had surgery in 2008 Problem 098226521 Diverticulitis (K57.92) Active confirmed His diverticulitis has resolved and she has resumed a normal activities of living. Problem 99432420 Mesenteric fibrosis (K65.8) Active confirmed She has had no further episodes of abdominal pain or fibrosis in any location. Observation and surveillance will continue. Problem Hydroureter (70273889) Hydroureter, left (N13.4) Active confirmed This days from her surgery for mesenteric fibrosis. The left kidney has become atrophic Vital Signs Heart Rate 62 /min 10/20/2024 Temperature 97.9 degrees Fahrenheit 10/20/2024 Blood pressure diastolic 77 mm Hg 10/20/2024 Height 59 in 10/20/2024 Blood pressure systolic 129 mm Hg 10/20/2024 Weight 115 lbs 10/20/2024 BMI 23.22 kg/m2 10/20/2024 Encounters Encounter Location Date Provider Diagnosis Carroll Gore III, MD [address] [place] [address] [place] [phone] 12/21/2023 Carroll Gore Essential hypertensi on I10 ; Hyperlipidemia, unspecified E78.5 ; Hydronephrosis, unspecified hydronephrosis type N13.30 ; Other and unspecified ovarian cyst N83.20 ; Calculus of gallbladder without cholecystitis without obstruction K80.20 ; Tinnitus, bilateral H93.13 and Mesenteric fibrosis K65.8 Carroll Gore III, MD [address] [place] [address] [place] [phone] 04/21/2024 Carroll Gore Vitamin D deficiency E55.9 ; Mesenteric fibrosis K65.8 ; Hyperlipidemia, unspecified E78.5 ; Essential hypertension I10 and Tinnitus, bilateral H93.13 Carroll Gore III, MD [address] [place] [address] [place] [phone] 10/20/2024 Carroll Gore Essential hypertensi on I10 ; Hyperlipidemia, unspecified E78.5 ; Vitamin D deficiency E55.9 ; Calculus of gallbladder without cholecystitis without obstruction K80.20 ; Age-related osteoporosis without current pathological fracture M81.0 ; Hydroureter, left N13.4 and Cholelithiasis K80.20 Carroll Gore III, MD [address] [place] [address] DARLE[address] STEWART, [place] [phone] 07/03/2024 Carroll Gore Assessments Encounter Date Diagnosis (ICD Code) Assessment Notes Treat ment Notes Treatment Clinical Notes 12/21/2023 Hyperlipidemia, unspecified (ICD-10 - E78.5) Her lipids are stable at this time and will be repeated periodically. 12/21/2023 Essential hypertension (ICD-10 - I10) Her blood pressure is stable and controlled the no change in her regimen was needed today. 04/21/2024 Vitamin D deficiency (ICD-10 - E55.9) She was continued on her vitamin D and calcium supplements. 04/21/2024 Mesenteric fibrosis (ICD-10 - K65.8) She has had no further episodes of abdominal pain or fibrosis in any location. Observation and surveillance will continue. 10/20/2024 Hyperlipidemia, unspecified (ICD-10 - E78.5) The current fasting lipid profile shows good control of her lipids. No change in her regimen was necessary. 10/20/2024 Essential hypertension (ICD-10 - I10) Her blood pressure is stable at 129/77. Her weight is in the normal range. No change in her regimen was necessary today. As will be followed carefully. 12/21/2023 Hydronephrosis, unspecified hydronephrosis type (ICD-10 - N13.30) The recent images are stable and her renal function function has improved slightly. She is known to have hydronephrosis of the left kidney likely due to the mesenteric fibrosis for which she had surgery in 200804/21/2024 Hyperlipidemia, unspecified (ICD-10 - E78.5) A fasting lipid profile done April 18, 2024 shows a total cholesterol of 192 triglycerides 277 and LDL 95. We have discussed diet and nutrition at length. 10/20/2024 Vitamin D deficiency (ICD-10 - E55.9) The current vitamin D level is in the normal range. No change in her dosage was necessary. 12/21/2023 Other and unspecified ovarian cyst (ICD-10 - N83.20) She has seen her dry cleaner hand recently and is being followed for this problem. She is asymptomatic. 04/21/2024 Essential hypertension (ICD-10 - I10) Her blood pressure is stable and controlled the no change in her regimen was needed today. 10/20/2024 Calculus of gallbladder without cholecystitis without obstruction (ICD-10 - K80.20) There is no discomfort to palpation of the right side of the abdomen. 12/21/2023 Calculus of gallbladder without cholecystitis without obstruction (ICD-10 - K80.20) There is no discomfort to palpation of the right side of the abdomen. 04/21/2024 Tinnitus, bilateral (ICD-10 - H93.13) The tinnitus is intermittent and mild and is not bothering her at this time. 10/20/2024 Age-related osteoporosis without current pathological fracture (ICD-10 - M81.0) She is going to try alendronate. 12/21/2023 Tinnitus, bilateral (ICD-10 - H93.13) The tinnitus is intermittent and mild and is not bothering her at this time. 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 The left kidney has become atrophic 12/21/2023 Mesenteric fibrosis (ICD-10 - K65.8) She has had no further episodes of abdominal pain or fibrosis in any location. Observation and surveillance will continue. 10/20/2024 Cholelithiasis (ICD-10 - K80.20) She has known documented gallstones. An ultrasound of the abdomen to assess the gallbladder has been ordered. She will return to the office at once if the pain returns. Plan Of Treatment Pending Test Test Name Order Date PROFILE, FASTING (COMPREHENSIVE METABOLI C) 11/18/2021 PROFILE, FASTING (COMPREHENSIVE METABOLI C) 12/21/2023 PROFILE, FASTING (COMPREHENSIVE METABOLI C) 10/20/2024 PROFILE, FASTING (COMPREHENSIVE METABOLI C) 06/20/2020 PROFILE, FASTING (COMPREHENSIVE METABOLI C) 06/26/2022 PROFILE, FASTING (COMPREHENSIVE METABOLI C) 01/11/2020 PROFILE, FASTING (COMPREHENSIVE METABOLI C) 04/21/2024 PROFILE, FASTING (COMPREHENSIVE METABOLI C) 02/20/2022 PROFILE, RANDOM (COMPREHENSIVE METABOLIC ) 03/19/2020 PROFILE, RANDOM (COMPREHENSIVE METABOLIC ) 01/26/2022 LIPID PANEL 06/20/2020 LIPID PANEL 06/26/2022 LIPID PANEL 01/11/2020 LDH 01/26/2022 CPK 01/26/2022 CBC w DIFF 11/18/2021 CBC w DIFF 03/19/2020 CBC w DIFF 12/21/2023 CBC w DIFF 01/26/2022 CBC w DIFF 10/20/2024 CBC w DIFF 06/20/2020 CBC w DIFF 06/26/2022 CBC w DIFF 01/11/2020 CBC w DIFF 02/20/2022 SED RATE (ESR) 01/26/2022 URINE CULTURE 04/05/2023 BONE DENSITY DEXA 11/18/2021 MAMMOGRAM DIGITAL BILATERAL SCREEN 08/31 MAMMOGRAM DIGITAL BILATERAL SCREEN 09/29 MAMMOGRAM DIGITAL BILATERAL SCREEN 01/20 MAMMOGRAM DIGITAL BILATERAL SCREEN 11/12 US ABD 11/13/2022 US BREAST LEFT 01/20/2023 US BREAST RIGHT 01/20/2023 CBC WITH AUTO DIFF 04/21/2024 Lipid Panel 04/21/2024 Lipid Panel 02/20/2022 Lipid Panel 11/18/2021 Lipid Panel 12/21/2023 Lipid Panel 10/20/2024 Vitamin D 25-OH Total 10/20/2024 Vitamin D 25-OH Total 04/21/2024 Vitamin D 25-OH Total 02/20/2022 Urine Culture 07/02/2023 Routine Culture 09/15/2023 Next Appt Details Provider Name:Carroll Gore, 02/20/2025 04:00:00 PM, [address] [place] [address] [place], [place], [phone], Provider Name:Carroll Gore, 10/22/2025 04:00:00 PM, [address] [place] [address] [place], [place], [phone], Insurance Providers Payer Name Payer Address Payer Phone Subscriber Number Group Number Insured Name Patient Relationship to Insured Coverage Start Date Coverage End Date Blue Benefits Administrato rs [facility] [address] [address] [place] [address] [id number] Karen Lozada Self - patient is the insured Medical (General) History Medical History History ICD Code hypertension mesenteric fibromatosis left hydronephrosis gallstones 2.5 cm right ovarian cyst 5 mm left lower lobe pulmonary nodule Surgical History Surgery Date(Month/Year) No history laparotomy for mesenteric fibrosis /2008 Hospitalization History Reason Date(Month/Year) No history
[2024-11-23 12:58] LABS: Bacteria Urine None Seen (None Seen); Hyaline Casts Urine 0-2 /LPF (0-2); RBC Urine 0-2 /HPF (0-2); Squamous Epithelial Cell Urine 0-2 /HPF (0-2); WBC Urine 0-5 /HPF (0-5)
[2024-11-23 13:02] LABS: Uric Acid 5.7 mg/dL (2.4-5.7)
[2024-11-23 13:07] LABS: Creatinine Urine 22.56 mg/dL; Total Protein Urine Random < 7 mg/dL (<12)
[2024-11-23 13:12] LABS: Magnesium 1.4 mg/dL (1.6-2.6); Vitamin D 25-OH Total 44.7 ng/mL (>30)
== END 2024-11-23 11:26 | disposition home or self-care (01) ==
LOC: HO.LAB 11:25
PROVIDERS: PCP Internal Medicine Medical Oncology; Visit Provider Internal Medicine Nephrology
DX: N18.31 Chronic kidney disease, stage 3a (principal); I10 Essential (primary) hypertension; N28.1 Cyst of kidney, acquired; E78.5 Hyperlipidemia, unspecified; N13.8 Other obstructive and reflux uropathy
CPT/HCPCS: 36415; 80053; 81001; 82306; 82570; 83735; 83970; 84100; 84156; 84550; 85025

== ENCOUNTER 2024-12-08 11:28 | Outpatient (REF) | payer OTHER, SELFPAY ==
--- OUTSIDE RECORDS SUMMARY | 2024-12-08 11:31 | XMS_ITS | Clinical Summary ---
Author Organization [facility] Address [address] [place] [phone] Phone Care Team Providers Care Detector Car Operator Name Role Phone Carroll Gore MD Primary Care Provider [phone] Allergies Active Allergy Reactions Criticality Noted Date Comments Alendronate Other (see comments) 12/05/2024 Nitrofurantoin Other (see comments) 07/30/2021 Medications atorvastatin [...] each day 30 tablet 11 3 Active Magnesium Citrate 200 MG tablet Take 1 tablet by mouth 1 (one) time each day 90 tablet 3 5 Active Active Problems Problem Noted Date Diagnosed [...] Encounters Date Type Department Care Team Description 12/05/2024 8:20 AM EDT Office Visit [facility] [address] [address] Oracio Vital MD Stage 3a chronic kidney disease (HCC) (Primary Dx); Simple renal cyst; Hypertension; Nephrolithiasis; Dyslipidemia; Obstructive nephropathy 11/23/2024 Orders Only [facility] [address] [address] Oracio Vital MD from Last 3 Months [...] Sign Reading Time Taken Comments Blood Pressure 124/78 12/05/2024 8:20 AM EDT Pulse 66 12/05/2024 8:20 AM EDT Temperature - - Respiratory Rate - - Oxygen Saturation 99% 12/05/2024 8:20 AM EDT Inhaled Oxygen Concentration - - Weight 52.4 kg (115 lb 9.6 oz) 12/05/2024 8:20 A M EDT Height 149.9 cm (4' 11 ) 11/16/2023 9:40 AM EDT Body Mass Index 23.35 11/16/2023 9:40 AM EDT Plan of Treatment Health Maintenance Due Date [...] Procedure Name Priority Date/Time Associated Diagnosis Comments PROTEIN / CREATININE RATIO, URINE Routine 11/23/2024 12:03 PM EDT URINALYSIS WITH MICROSCOPIC Routine 11/23/2024 12:03 PM EDT VITAMIN D 25 HYDROXY Routine 11/23/2024 11:39 AM EDT MAGNESIUM Routine 11/23/2024 11:39 AM EDT URIC ACID Routine 11/23/2024 11:39 AM EDT PHOSPHATE ( PHOSPHORUS) Routine 11/23/2024 11:39 AM EDT COMPREHENSIVE METABOLIC PANEL Routine 11/23/2024 11:39 AM EDT PTH, INTACT (HC) Routine 11/23/2024 11:3 9 AM EDT CBC AND DIFFERENTIAL Routine 11/23/2024 11:39 AM EDT from Last 3 Months Results * Protein, Total, Random Urine w/Creatinine (Protein/Creat Ratio) (11/23/2024 12:03 PM EDT) Creatinine, Urine 22.56 mg/dL See order comments Protein Urine Random <7 <12 mg/dL See order comments Protein/Creatin ine Ratio, Urine TNP <0.2 See order comments Comment: Unable to calculate urine protein creatinine ratio due to low creatinine or protein result. 11/23/2024 12:0 3 PM EDT 11/23/2024 12:03 PM EDT us Oracio Vital MD LAB URINE ORDERABLES Final Re sult [place] See order comments [place] [address] * (ABNORMAL) Urinalysis with microscopic (11/23/2024 12:03 PM EDT) Color Urine Yellow See orde r comments Appearance Urine Clear See order comments pH Urine 7.0 5.0 - 9.0 See order comments Glucose Urine Negative Negative mg/dL See order comments Blood, Urine Negative Negative See ord er comments Specific [place] Urine 1.010 1.005 - 1.025 See order comments Protein Urine Negative Neg-Trace mg/dL See order comments Ketones, Urine Negative Negative mg/dL See order comments Nitrite, Urine Negative Negative See o rder comments Leukocyte Esterase Urine Small (1+)(A) Negative See order comments RBC, Urine 0-2 0 - 2 /HPF See orde r comments WBC 0-5 0 - 5 /HPF See order comments Squamous Epithelial, Urine 0-2 0 - 2 /HPF See order comments Bacteria, Urine None Seen None Seen See order comments Hyaline Casts, Urine 0-2 0 - 2 /LPF See order comments 11/23/2024 12:0 3 PM EDT 11/23/2024 12:03 PM EDT us Oracio Vital MD LAB URINE ORDERABLES Final Re sult Performing Organization Address [facility] de Phone Number TERR[place] See order comments [place] [address] * PTH, Intact (11/23/2024 11:39 AM EDT) Parathyroid Hormone, Intact 45.2 8.7 - 77.1 pg/mL See order comments 11/23/2024 11:3 9 AM EDT 11/23/2024 11:39 AM EDT Oracio Vital MD LAB [id number] SOLICITED RESULTS Final Result Performing Organization Address [facility] de Phone Number [place] See order comments [place] [address] * Vitamin D 25 Hydroxy (11/23/2024 11:39 AM EDT) Vitamin D, 25-Hydroxy 44.7 >30 ng/mL See order comments Comment: Health Based Reference Values* < 20 ??ng/mL ??Deficient 20-30 ng/mL ??Insufficient > 30 ??ng/mL ??Sufficient *Daniel LOMELI. N Engl J Med. 2007;357:266-280 [...] D results from different laboratories and methodologies. ??Published data demonstrated that results from patients undergoing hemodialysis may show a negative bias when tested with various automated 25-OH vitamin D assays when compared to LC-MS/MS. When testing samples from patients whose predominant form of Vitamin D is Vitamin D2, such as patients receiving Vitamin D2 supplementation, results that are subtherapeutic should be confirmed with another method such as LC-MS/MS. 11/23/2024 11:3 9 AM EDT 11/23/2024 11:39 AM EDT us Oracio Vital MD LAB BLOOD ORDERABLES Final Re sult [place] See order comments [place] [address] * (ABNORMAL) CBC and Differential (11/23/2024 11:39 [...] MD LAB BLOOD ORDERABLES Final Re sult Performing Organization Address [facility] Phone Number [place] See order comments [place] [address] * Uric Acid (11/23/2024 11:39 AM EDT) Uric Acid 5.7 2.4 - 5.7 mg/dL See order comments 11/23/2024 11:3 9 AM EDT 11/23/2024 11:39 AM EDT us Oracio Vital MD LAB BLOOD ORDERABLES Final Re sult Performing Organization Address [facility] de Phone Number [facility] See order comments [place] [address] * Phosphorus (11/23/2024 11:39 AM EDT) Phosphorus, Serum 2.9 2.7 - 4.5 mg/dL See order comments 11/23/2024 11:3 9 AM EDT 11/23/2024 11:39 AM EDT us Oraico Vital MD LAB BLOOD ORDERABLES Final Re sult Performing Organization Address [facility] Phone Number [facility] See order comments [place] [address] * (ABNORMAL) Magnesium (11/23/2024 11:39 AM EDT) Magnesium 1.4(LL) 1.6 - 2.6 mg/dL See order comments Comment: Critical value for MAG: ??Results called to and read back by: FANTA Bae Person calling: WILLIAMS Date: 11-23-24 Time: 1309 11/23/2024 11:3 9 AM EDT 11/23/2024 11:39 AM EDT us Oracio Vital MD LAB BLOOD ORDERABLES Final Re sult [place] See order comments [place] [address] * (ABNORMAL) Comprehensive Metabolic Panel (11/23/2024 11:39 AM EDT) Sodium 138 135 - 145 mmol/L See order comments Potassium 3.6 3.3 - 5.1 mmol/L See order comments Chloride 100 96 - 108 mmol/L See order comments Bicarbonate (CO2) 31(H) 22 - 29 mmol/L See order comments Anion Gap 11(L) 12 - 20 See order comments BUN 27(H) 9 - 16 mg/dL See order comments Creatinine Serum 0.78 0.5 - 1.4 mg/dL See order comments eGFR (Calc) >60 See orde r comments Comment: Chronic Kidney Disease: ??Estimated GFR < 60 mL/min/1.73m2 Severe Kidney Disease: ??Estimated GFR < 15 mL/min/1.73m2 Glucose 102 60 - 115 mg/dL See order comments Calcium 10.1 8.4 - 10.2 mg/dL See order comments Total Bilirubin 0.5 0.0 - 1.0 mg/dL See order comments AST (SGOT) 26 5 - 31 U/L See orde r comments ALT (SGPT) 26 0 - 31 U/L See orde r comments Total Protein 7.2 6.5 - 8.0 g/dL See order comments Albumin 4.1 3.5 - 5.0 g/dL See order comments Alkaline phosphatase 70 39 - 117 U/L See order comments 11/23/2024 11:3 9 AM EDT 11/23/2024 11:39 AM EDT us Oracio Vital MD LAB BLOOD ORDERABLES Final Re sult [place] See order comments [place] [address] from Last 3 Months Insurance Comprehensive Benefits Comprehensive Benefits Care Teams Detector Car Operator Relationship Specialty Start Date End Date Carroll Gore MD [address] [place] [address] [address] [place], [place] PCP - General 07/29/20
[2024-12-08 11:37] LABS: MANUAL DIFF FLAG NO
[2024-12-08 12:19] LABS: Basophils Absolute Auto 0.1 X10*3/uL (0.0-0.2); Basophils Percent Auto 0.7 % (0-2); Eosinophils Absolute Auto 0.3 X10*3/uL (0.0-0.4); Eosinophils Percent Auto 4.1 % (0-4); Hematocrit 38.5 % (37.0-47.0); Hemoglobin 13.7 g/dl (12.0-16.0); Imm Gran Abs Auto 0.01 X10*3/uL (0.00-0.03); Imm Gran Pct Auto 0.1 % (0.0-0.4); Lymphocytes Absolute Auto 3.1 X10*3/uL (1.2-4.9); Lymphocytes Percent Auto 37.1 % (20-40); Mean Corpuscular HGB Conc 35.6 g/dl (31.0-35.0); Mean Corpuscular Hemoglobin 31.7 pg (27.0-33.0); Mean Corpuscular Volume 89.1 fL (80.0-98.0); Mean Platelet Volume 10.6 fL (9.4-12.3); Monocytes Absolute Auto 0.8 X10*3/uL (0.1-1.2); Platelet Count 306 X10*3/uL (160-400); Red Blood Count 4.32 X10*6/uL (4.20-5.50); Red Cell Distribution Width 11.7 % (11.0-16.0); White Blood Count 8.4 X10*3/uL (4.8-10.8)
[2024-12-08 12:49] LABS: Alanine Aminotransferase 120 U/L (0-31); Albumin Level 4.6 g/dL (3.5-5.0); Alkaline Phosphatase 101 U/L (39-117); Amylase 113 U/L (28-100); Anion Gap 16 (12-20); Aspartate Amino Transferase 44 U/L (5-31); Bilirubin Total 0.9 mg/dL (0.0-1.0); Blood Urea Nitrogen 20 mg/dL (9-16); Carbon Dioxide 30 mmol/L (22-29); Chloride 98 mmol/L (96-108); Cholesterol 138 mg/dL (<200); Estimated Glomerular Filt Rate > 60; Gamma Glutamyl Transpeptidase 151 U/L (7-33); Glucose Fasting 84 mg/dL (60-99); HDL Cholesterol 44 mg/dL (>40); LDL Cholesterol Calculated 71 mg/dL (<100); Lipase 68 U/L (8-78); Potassium 3.7 mmol/L (3.3-5.1); Sodium 140 mmol/L (135-145); Total Protein 7.6 g/dL (6.5-8.0); Triglycerides 116 mg/dL (<150)
== END 2024-12-08 11:29 | disposition home or self-care (01) ==
LOC: HO.LAB 11:28
PROVIDERS: PCP Internal Medicine Medical Oncology; Visit Provider Internal Medicine Medical Oncology
DX: I10 Essential (primary) hypertension (principal); R10.9 Unspecified abdominal pain; R10.10 Upper abdominal pain, unspecified; E78.5 Hyperlipidemia, unspecified
CPT/HCPCS: 36415; 80053; 80061; 82150; 82306; 82977; 83690; 85025

== ENCOUNTER 2025-01-01 14:36 | Outpatient (AMB) | payer OTHER, SELFPAY ==
--- NOTE | 2025-01-01 14:42 | A.OFFVIS_ITS ---
Vital Signs 01/01/25 14:57 Height 4 ft 11 in Weight 115 lb 8 oz BMI 23.3 BP 139/65 Blood Pressure Location Lt brachial Position Sitting Pulse 65 Intake Visit Reasons: gallstones Intake Note: Patient is seen in office for evaluation of gallstones. Pt c/o: couple weeks ago went to ED due to stones in the gallbladder, at the time had abdominal pain radiating to the back, currently does not have any symptoms ultrasound abdomen: 12/03/24 [facility] Telephony Engineer Required: No Accompanied by: Self / Same As Patient Allergies nitrofurantoin Allergy (Unknown, Verified 01/01/25 14:52) Unknown Medication List - Last Reconciled 01/02/25 by Nitesh Wan MD atorvastatin 20 mg PO DAILY hydrochlorothiazide 25 mg PO DAILY losartan 100 mg PO DAILY HPI Comments Details: 64-year-old female patient presenting for evaluation of a recent episode of epigastric and right upper quadrant abdominal pain which began approximately 1 month ago. She denied a previous episode of similar pain. The pain seemed to worsen throughout the day and she subsequently presented to the emergency department at [facility]. Workup at that time revealed gallstones within the gallbladder. While she was waiting in the emergency department the abdominal pain improved and she was subsequently discharged home. Since this time she has remained on a restricted diet avoiding fatty foods. She reports that she is moving in approximately 1 month down to [place] where she has no physicians in addition she is traveling to [facility] a vacation in his concerned about the pain returning and needing surgery out of the country. The pain was very severe at the time and she does not wish to undergo this pain once again. She is requesting to discuss her surgical options. [facility] Medical History (Updated 01/02/25 @ 09:33 by Nitesh Wan MD) Symptomatic cholelithiasis Carcinoid tumor Surgical History (Updated 01/02/25 @ 09:32 by Nitesh Wan MD) S/P small bowel resection Review of Systems Const All systems reviewed & are unremarkable except as noted in HPI and below Physical Exam Vital Signs: Last Vital Signs Pulse 65 01/01/25 14:57 BP 139/65 01/01/25 14:57 BMI result Body Mass Index 23.3 Const General: cooperative and no acute distress Nutritional Appearance: well nourished Orientation/consciousness: patient oriented x3 Limitations: no limitations HEENT Head: Yes normocephalic and Yes atraumatic Ears: hearing grossly normal bilaterally Resp Effort & Inspection: normal respiratory effort, no audible wheezes, no cough and no respiratory distress Cardio Jugular venous distension: no JVD GI Inspection: Yes normal to inspection and Yes incision (Midline periumbilical following small-bowel carcinoid surgery) Palpation (GI): Soft to palpation, nontender, no guarding, not rigid and No hepatosplenomegaly present Skin Other: Warm, dry, no rash Neuro General: patient oriented x3 Extrem General: Yes no clubbing, cyanosis or edema Assessment & Plan Assessment & Plan (1) Symptomatic cholelithiasis: Code(s): K80.20 - Calculus of gallbladder without cholecystitis without obstruction Category: Medical Plan 64-year-old female patient presenting with complaints of abdominal pain in the epigastrium radiating to the right upper quadrant and back. Workup in the emergency department at [facility] revealed cholelithiasis. The patient has requested cholecystectomy. I reviewed the procedure, risks, and alternatives of laparoscopic or possible open cholecystectomy and she consents to the surgery. She will be scheduled as a short-stay surgery. Coding Level of Care Code New Pt Level 4 (39431) Diagnoses Symptomatic cholelithiasis K80.20
[2025-01-01 14:57] VITALS: BP 139/65; PULSE 65; BMI 23.3
--- OUTSIDE RECORDS SUMMARY | 2025-01-01 16:20 | XMS_ITS | Clinical Summary ---
Author Organization [facility] Address [address] [place] [phone] Phone Care Team Providers Care Audio/Visual Operator Name Role Phone Carroll Gore MD Primary Care Provider [phone] Allergies Active Allergy Reactions Criticality Noted Date [...] Office Visit [facility] [address] [phone] Oracio Vital MD Stage 3a chronic kidney disease (HCC) (Primary Dx); Simple renal cyst; Hypertension; Nephrolithiasis; Dyslipidemia; Obstructive nephropathy 11/23/2024 Orders Only [facility] [address] [address] Oracio Vital MD from Last 3 Months [...] order comments [place] [address] * (ABNORMAL) Urinalysis with microscopic (11/23/2024 12:03 PM EDT) Color Urine Yellow See orde r comments Appearance Urine Clear See order comments pH Urine 7.0 5.0 - 9.0 See order comments Glucose Urine Negative Negative mg/dL See order comments Blood, Urine Negative Negative See ord er comments Specific [place] Urine 1.010 1.005 - 1.025 See order [...] Re sult Performing Organization Address [facility] de Phone Number [place] See order comments [place] [address] * PTH, Intact (11/23/2024 11:39 AM EDT) Parathyroid Hormone, Intact 45.2 8.7 - 77.1 pg/mL See order comments 11/23/2024 11:3 9 AM EDT 11/23/2024 11:39 AM EDT Oracio Vital MD LAB [id number] SOLICITED RESULTS Final Result Performing Organization Address [facility] de Phone Number [place] See order comments [place] [address] * Vitamin D 25 Hydroxy (11/23/2024 11:39 [...] order comments [place] [address] * (ABNORMAL) CBC and Differential (11/23/2024 11:39 [...] Re sult Performing Organization Address [facility] Phone Number [place] See order comments [place] [address] * Uric Acid (11/23/2024 11:39 AM EDT) Uric Acid 5.7 2.4 - 5.7 mg/dL See order comments 11/23/2024 11:3 9 AM EDT 11/23/2024 11:39 AM EDT us Oracio Vital MD LAB BLOOD ORDERABLES Final Re sult Performing Organization Address [facility] de Phone Number [facility] See order comments [place] [address] * Phosphorus (11/23/2024 11:39 AM EDT) Phosphorus, Serum 2.9 2.7 - 4.5 mg/dL See order comments 11/23/2024 11:3 9 AM EDT 11/23/2024 11:39 AM EDT us Oracio Vital MD LAB BLOOD ORDERABLES Final Re sult Performing Organization Address [facility] Phone Number [facility] See order comments [place] [address] * (ABNORMAL) Magnesium (11/23/2024 11:39 AM EDT) [...] order comments [place] [address] * (ABNORMAL) Comprehensive Metabolic Panel (11/23/2024 11:39 [...] order comments [place] [address] from Last 3 Months Insurance Comprehensive Benefits Comprehensive Benefits Care Teams Audio/Visual Operator Relationship Specialty Start Date End Date Carroll Gore MD [address] [place] [address] [address] [place], [place] PCP - General 07/29/20
== END 2025-01-01 15:30 | disposition home or self-care (01) ==
LOC: HO.HGS 14:36
PROVIDERS: PCP Internal Medicine Medical Oncology; Visit Provider Surgery
DX: K80.20 Calculus of gallbladder without cholecystitis without obstruction (principal)
CPT/HCPCS: 99204

== ENCOUNTER → 2025-01-01 14:36 | Outpatient (BNVA) | payer OTHER, SELFPAY | PROVIDERS: PCP Internal Medicine Medical Oncology; Visit Provider Surgery ==

== ENCOUNTER 2025-01-11 09:22 | Day surgery (SDC) | payer OTHER, SELFPAY ==
--- OUTSIDE RECORDS SUMMARY | 2025-01-02 16:14 | XMS_ITS | Clinical Summary ---
Author Organization [facility] Address [address] [place] [phone] Phone Care Team Providers Care Hvac Technician Residential Name Role Phone Carroll Gore MD Primary Care Provider [phone] Allergies Active Allergy Reactions Criticality Noted Date [...] Office Visit [facility] [address] [address] Oracio Vital MD Stage 3a chronic kidney disease (HCC) (Primary Dx); Simple renal cyst; Hypertension; Nephrolithiasis; Dyslipidemia; Obstructive nephropathy 11/23/2024 Orders Only [facility] [address] [phone] Oracio Vital MD from Last 3 Months [...] order comments [place] [address] * (ABNORMAL) Urinalysis with microscopic (11/23/2024 12:03 PM EDT) Color Urine Yellow See orde r comments Appearance Urine Clear See order comments pH Urine 7.0 5.0 - 9.0 See order comments Glucose Urine Negative Negative mg/dL See order comments Blood, Urine Negative Negative See ord er comments Specific [place] Urine 1.010 1.005 - 1.025 See order [...] ORDERABLES Final Re sult Performing Organization Address [facility] de Phone Number [place] See order comments [place] [address] * PTH, Intact (11/23/2024 11:39 AM EDT) Parathyroid Hormone, Intact 45.2 8.7 - 77.1 pg/mL See order comments 11/23/2024 11:3 9 AM EDT 11/23/2024 11:39 AM EDT Oracio Vtial MD LAB [id number] SOLICITED RESULTS Final Result Performing Organization Address [facility] de Phone Number [place] See order comments [place] [address] * Vitamin D 25 Hydroxy (11/23/2024 11:39 [...] order comments [place] [address] * (ABNORMAL) CBC and Differential (11/23/2024 11:39 [...] ORDERABLES Final Re sult Performing Organization Address [facility] Phone Number [place] See order comments [place] [address] * Uric Acid (11/23/2024 11:39 AM EDT) Uric Acid 5.7 2.4 - 5.7 mg/dL See order comments 11/23/2024 11:3 9 AM EDT 11/23/2024 11:39 AM EDT us Oracio Vital MD LAB BLOOD ORDERABLES Final Re sult Performing Organization Address [facility] de Phone Number [facility] See order comments [place] [address] * Phosphorus (11/23/2024 11:39 AM EDT) Phosphorus, Serum 2.9 2.7 - 4.5 mg/dL See order comments 11/23/2024 11:3 9 AM EDT 11/23/2024 11:39 AM EDT us Oracio Vital MD LAB BLOOD ORDERABLES Final Re sult Performing Organization Address [facility] Phone Number [facility] See order comments [place] [address] * (ABNORMAL) Magnesium (11/23/2024 11:39 AM EDT) [...] order comments [place] [address] * (ABNORMAL) Comprehensive Metabolic Panel (11/23/2024 11:39 [...] order comments [place] [address] from Last 3 Months Insurance Comprehensive Benefits Comprehensive Benefits Care Teams Hvac Technician Residential Relationship Specialty Start Date End Date Carroll Gore MD [address] [place] [address] [address] [place], [place] PCP - General 07/29/20
[2025-01-09 08:31] VITALS: BMI 23.2
--- NOTE | 2025-01-10 09:17 | HO.ANESPROP2 ---
Documented by User: Gracie Zamudio NP 01/10/25 09:23 HPI - Anesthesia Eval Consult details Narrative: 64yo F for Cholecystectomy Laparoscopic, possible open Critically low Mg 11/2024 @ 1.4... ? r/t hctz. Unable to reach patient by phone. Repeat DOS PMFSH Active Problems Active Problems: All Active Problems Symptomatic cholelithiasis (Acute) Past Medical History Medical History (Updated 01/02/25 @ 09:33 by Nitesh Wan MD) Symptomatic cholelithiasis Carcinoid tumor Surgical History Surgical History (Updated 01/02/25 @ 09:32 by Nitesh Wan MD) S/P small bowel resection Social History Social History Patient Tobacco Use Status: Never used Tobacco Have you been hit, kicked, punched, or otherwise hurt by someone within the past year? If so, by whom?: No Are you DNR?: No Advance Directives: No Advance Directives Information Provided: Yes Meds Allergies Allergy/AdvReac Type Severity Reaction Status Date / Time nitrofurantoin Allergy Unknown Unknown Verified 01/01/25 14:52 alendronate sodium Allergy Unknown Verified 01/09/25 08:26 Home Medications ?Medication ?Instructions ?Recorded ?Confirmed ?Last Taken ?Type atorvastatin 20 mg tablet 20 mg PO DAILY 01/01/25 01/02/25 Unknown History hydrochlorothiazide 25 mg tablet 25 mg PO DAILY 01/01/25 01/02/25 Unknown History losartan 100 mg tablet 100 mg PO DAILY 01/01/25 01/02/25 Unknown History Exam Height,Weight and Vital Signs: Height 4 ft 11 in Weight 52.163 kg Pertinent Lab Results Pertinent Lab Results: Laboratory Tests 12/08/24 11:35 WBC 8.4 Hgb 13.7 Hct 38.5 Plt Count 306 Sodium 140 Potassium 3.7 Chloride 98 Carbon Dioxide 30 H Anion Gap 16 BUN 20 H Creatinine 0.92 Total Bilirubin 0.9 GGT 151 H AST 44 H ALT 120 H Alkaline Phosphatase 101 Total Protein 7.6 Albumin 4.6 Triglycerides 116 Amylase 113 H Lipase 68 Assessment and Plan Assessment Anesthesia Assessment: Chart Reviewed Documented by User: Jose Raul Colunga MD 01/11/25 11:57 [facility] Past Medical History Medical History (Updated 01/02/25 @ 09:33 by Nitesh Wan MD) Symptomatic cholelithiasis Carcinoid tumor Cognitive capacity: good Family History Family history of problems with anesthesia: No Surgical History Surgical History (Updated 01/02/25 @ 09:32 by Nitesh Wan MD) S/P small bowel resection History of Problems with Anesthesia: No Social History Social History Patient Tobacco Use Status: Never used Tobacco Have you been hit, kicked, punched, or otherwise hurt by someone within the past year? If so, by whom?: No Are you DNR?: No Advance Directives: No Advance Directives Information Provided: Yes Meds Allergies Allergy/AdvReac Type Severity Reaction Status Date / Time nitrofurantoin Allergy Unknown Unknown Verified 01/01/25 14:52 alendronate sodium Allergy Unknown Verified 01/09/25 08:26 Home Medications ?Medication ?Instructions ?Recorded ?Confirmed ?Last Taken ?Type atorvastatin 20 mg tablet 20 mg PO DAILY 01/01/25 01/02/25 Unknown History hydrochlorothiazide 25 mg tablet 25 mg PO DAILY 01/01/25 01/02/25 Unknown History losartan 100 mg tablet 100 mg PO DAILY 01/01/25 01/02/25 Unknown History Exam Exam Date and Time: 01/11/2025 Airway Mallampati Class: II TM Dist: >3cm Neck ROM: Full Loose/Missing/Broken Teeth: No (permanent implants) Heart: rrr Lungs: cta Other: oriented, normal cognitive function Assessment and Plan Final Anesthetic Review Family History of Problems with Anesthesia: No History of Problems with Anesthesia: No NPO: Yes ASA Class: II Final Preanesthetic Review: No Changes in Pt Med Stat, Meds/Allgs Chart Reviewed, Consent Obtained/Reviewed and Anes Risks/Benef Reviewed Patient Risk: Low Procedure Risk: Low Anesthetic Plan Anesthetic Plan: GA Disposition: Standard PACU
[2025-01-11] VITALS (12 sets, daily range): BP systolic 130–186; BP diastolic 71–87; PULSE 55–80; RESP 12–20; TEMP 36.1–36.6; O2SAT 88–100; BMI 23.7
[2025-01-11] MEDS: Lactated Ringers 1,000 ML 100 ML IVCONT (10:06)
[2025-01-11 10:13] LABS: Magnesium 1.6 mg/dL (1.6-2.6)
--- NOTE | 2025-01-11 11:20 | MHC.SHP ---
Pre-Procedural Eval Section A - 24 Hr Update-Section A only Date of Service: 01/11/25 The patient is an INPATIENT: No Changes since office visit: Yes Patient answered all questions; No Cold of Flu in the past 2 weeks, No New Medical Problems and No Changes in Medication The patient has been examined within 24 hours of the surgical procedure. The History & Physical has been completed within 30 days and I have reviewed it.: Yes Section B - Complete if H&P > 30 days Chief Complaint: Calculus of gallbladder without cholecystitis with Allergies: Allergies Allergy/AdvReac Type Severity Reaction Status Date / Time nitrofurantoin Allergy Unknown Unknown Verified 01/01/25 14:52 alendronate sodium Allergy Unknown Verified 01/09/25 08:26 Plan Diagnosis/Plan: Unchanged I have reviewed the history and physical and performed a pertinent physical examination on my patient. No changes have occurred unless specified. Time Spent With Patient Time: Total time managing care of this patient today ____ minutes.
--- NOTE | 2025-01-11 12:32 | W.PM.OPN ---
Operative Note Operative Note Date of Service: 01/11/25 Narrative: Preoperative diagnosis: Symptomatic cholelithiasis Postoperative diagnosis: Same Procedure: Laparoscopic cholecystectomy Surgeon: Nitesh Wan MD [employer] [address] [employer]: Migel Bazan PA-C, JOHN Elizondo Anesthesia: General endotracheal Indications for procedure: 64-year-old female patient presenting with complaints of abdominal pain in the right upper quadrant on a recent episode noted to have gallstones in the gallbladder. The patient had severe pain at the time of this episode in his requested proceeding to a laparoscopic cholecystectomy. Operative findings: Evidence of chronic cholecystitis with adhesions to the undersurface of the gallbladder. Adhesions in the midline from prior abdominal surgery. Specimen: gallbladder Estimated blood loss: Less than 200 mL Complications: None Procedure details: Patient was brought to the OR and placed in a supine position. After administering general anesthesia the patient's abdomen was prepped with ChloraPrep and draped in a sterile fashion. A surgical time-out was called the consent confirmed. Patient received preoperative antibiotics and Venodyne boots were in place. Local anesthesia consisting of 0.5% Sensorcaine without epinephrine was infiltrated in a periumbilical region. A 5 mm incision was made above the umbilicus in a transverse fashion. The Veress needle was then inserted while elevating abdominal cavity with towel clips. After positive drop test the abdomen was insufflated to a pressure of 15 mm of mercury. The Veress needle was then removed and a 5 mm trocar inserted. The camera was inserted in the abdomen explored. A 12 mm trocar was then placed in the epigastrium. Two 5 mm trocars placed in the right upper quadrant by the miller head assistant wet process. The patient was placed in reverse Trendelenburg positioning and rotated to the left. The gallbladder was grasped with the fundus and retracted cephalad by the miller head assistant wet process. The infundibulum was then grasped and retracted away from the liver bed, also by the miller head assistant wet process. The Dolphin dissected was then used by the surgeon to dissect the peritoneum off the infundibulum to reveal the junction with the cystic duct. Cystic artery was noted slightly medial and posterior to the cystic duct. After obtaining a critical view the cystic duct was doubly clipped and divided. The cystic artery was then doubly clipped and divided. The gallbladder was then dissected off the liver bed using electrocautery with an L hook. Hemostasis was assured all times using the electrocautery. When the gallbladder is completely dissected off the liver bed was placed in an Endo-Catch bag and brought out through the epigastric incision. The gallbladder was sent to pathology for further examination. The abdomen was then re-examined. The liver bed was irrigated and suctioned dry. No bleeding or bile leak could be identified. CO2 was then evacuated and all trocars removed. Fascia was closed at the epigastric incision using a cpebae-mm-fayci 0 Polysorb suture. Skin was closed in all incisions using a subcuticular 4 0 Polysorb suture by both the surgeon and miller head assistant wet process. Sterile dressings consisting of Steri-Strips, 2 x 2 gauze, and Tegaderm were then applied. The patient tolerated the procedure well. Sponge instrument and needle counts reported as correct. The patient was transferred to PACU in stable condition.
[2025-01-11] MEDS: fentaNYL citrate/PF 100 MCG/2 ML VIAL 50 MCG IVPUSH (14:43)
== END 2025-01-11 15:50 | disposition home or self-care (01) ==
PROVIDERS: Nurse Practitioner; PCP Internal Medicine Medical Oncology; Visit Provider Surgery
PROC: 0FT44ZZ Resection of Gallbladder, Percutaneous Endoscopic Approach (ICD-10-PCS; CPT 47562; principal; 2025-01-11 11:00)
DX: K80.12 Calculus of gallbladder with acute and chronic cholecystitis without obstruction (principal); K82.8 Other specified diseases of gallbladder; Z79.899 Other long term (current) drug therapy; Z88.8 Allergy status to other drugs, medicaments and biological substances; Z85.060 Personal history of malignant carcinoid tumor of small intestine; Z90.49 Acquired absence of other specified parts of digestive tract
CPT/HCPCS: 47562; 36415; 83735; 88304; J0131; J1100; J2003; J2250; J2405; J2704; J2795; J3010

== ENCOUNTER → 2025-01-11 09:22 | Outpatient (BNV) | payer OTHER, SELFPAY | PROVIDERS: PCP Internal Medicine Medical Oncology; Visit Provider Surgery | DX: K80.64 Calculus of gallbladder and bile duct with chronic cholecystitis without obstruction (principal) | CPT/HCPCS: 47562 ==

== ENCOUNTER 2025-01-22 07:39 | Outpatient (REF) | payer OTHER, SELFPAY ==
--- OUTSIDE RECORDS SUMMARY | 2025-01-22 07:42 | XMS_ITS | Clinical Summary ---
Author Organization [facility] Address [address] [place] [phone] Phone Care Team Providers Care Career Development Counselor Name Role Phone Carroll Gore MD Primary Care Provider [phone] Allergies Active Allergy Reactions Criticality Noted Date [...] Office Visit [facility] [address] [phone] Oracio Vital MD Stage 3a chronic kidney disease (HCC) (Primary Dx); Simple renal cyst; Hypertension; Nephrolithiasis; Dyslipidemia; Obstructive nephropathy 11/23/2024 Orders Only [facility] [address] [phone] Oracio Vital MD from Last 3 Months [...] - PCV) 05/10/2015 05/10/2014, 04/24/2014 Influenza Vaccine (#1) 2025 Pneumococcal Vaccine: Peds ( 0 to [...] order comments [place] [address] * (ABNORMAL) Urinalysis with microscopic (11/23/2024 12:03 PM EDT) Color Urine Yellow See orde r comments Appearance Urine Clear See order comments pH Urine 7.0 5.0 - 9.0 See order comments Glucose Urine Negative Negative mg/dL See order comments Blood, Urine Negative Negative See ord er comments Specific [place] Urine 1.010 1.005 - 1.025 See order [...] ORDERABLES Final Re sult Performing Organization Address [facility] de Phone Number TERRY See order comments [place] [address] * PTH, Intact (11/23/2024 11:39 AM EDT) Parathyroid Hormone, Intact 45.2 8.7 - 77.1 pg/mL See order comments 11/23/2024 11:3 9 AM EDT 11/23/2024 11:39 AM EDT Oracio Vital MD LAB [id number] SOLICITED RESULTS Final Result Performing Organization Address [facility] de Phone Number TERRY See order comments [place] [address] * Vitamin D 25 Hydroxy (11/23/2024 11:39 AM EDT) Vitamin D, 25-Hydroxy 44.7 >30 ng/mL See order comments Comment: Health Based Reference Values* < 20 ng/mL [...] order comments [place] [address] * (ABNORMAL) CBC and Differential (11/23/2024 11:39 [...] ORDERABLES Final Re sult Performing Organization Address [facility] de Phone Number [facility] See order comments [place] [address] * Uric Acid (11/23/2024 11:39 AM EDT) Uric Acid 5.7 2.4 - 5.7 mg/dL See order comments 11/23/2024 11:3 9 AM EDT 11/23/2024 11:39 AM EDT us Oracio Vital MD LAB BLOOD ORDERABLES Final Re sult Performing Organization Address [facility] Phone Number [place] See order comments [place] [address] * Phosphorus (11/23/2024 11:39 AM EDT) Phosphorus, Serum 2.9 2.7 - 4.5 mg/dL See order comments 11/23/2024 11:3 9 AM EDT 11/23/2024 11:39 AM EDT us Oracio Vital MD LAB BLOOD ORDERABLES Final Re sult Performing Organization Address [facility] de Phone Number [place] See order comments [place] [address] * (ABNORMAL) Magnesium (11/23/2024 11:39 AM EDT) Magnesium 1.4(LL) 1.6 - 2.6 mg/dL See order comments Comment: Critical value for MAG: Results called to and read back by: FANTA Bae Person calling: WILLIAMS Date: 11-23-24 Time: 1309 11/23/2024 11:3 9 AM EDT 11/23/2024 11:39 AM EDT us Oracio Vital MD LAB BLOOD ORDERABLES Final Re sult TERRY See order comments [place] [address] * (ABNORMAL) Comprehensive Metabolic Panel (11/23/2024 11:39 [...] orde r comments Comment: Chronic Kidney Disease: Estimated GFR < 60 mL/min/1.73m2 Severe Kidney Disease: Estimated GFR < 15 mL/min/1.73m2 Glucose 102 60 [...] ORDERABLES Final Re sult Performing Organization Address City/[facility]/ZIP Co de Phone Number [facility] See order comments [place] [address] from Last 3 Months Insurance Comprehensive Benefits Comprehensive Benefits Care Teams Career Development Counselor Relationship Specialty Start Date End Date Carroll Gore MD [address] [place] [phone] [phone] [place], [place] PCP - General 07/29/20
--- OUTSIDE RECORDS SUMMARY | 2025-01-22 07:42 | XMS_ITS | Clinical Summary ---
Author Organization [facility] Address [address] [place] [address] Phone Care Team Providers Care Sales Lead Name Role Phone Unavailable Primary Care Provider [...] Annual BMP Blood Test 2024 Influenza Vaccine (#1) 2025 3, 06/26/2022, 05/21/2020, Additional history exists Breast Cancer [...] Diagnosis Comments MG MAMMO DIGITAL SCREENING W PALOOM BILAT Routine 08/11/2024 8:50 AM EST Encounter [...] for biopsy. PQRI CPT II 3341F Code 07789, 43788 PQRI 225 CPT II 7025F TISSUE DENSITY: The breasts are heterogeneously dense, which may obscure small masses. (BI-RADS category C) IMPRESSION: Benign. BI-RADS CATEGORY: 1 - NEGATIVE RECOMMENDATION: Screening bilateral mammogram is recommended in 1 year. Mammo Location: [facility], [address] [address] -------- FINAL REPORT -------- Dictated By: Ray Durand Dictated Date: 08/11/2024 08:53 ET Assigned Physician: Ray Durand Reviewed and Electronically Signed By: Ray Durand Signed Date: 08/11/2024 08:57 ET Workstation ID: [id number] Transcribed By: Self Edit Transcribed Date: 08/11/2024 08:54 ET Narrative 08/11/2024 8:57 AM EST CLINICAL: The patient is a 63 years Female presenting for routine screening mammography. COMPARISON: Most recently 07/15/2023 and most remotely 09/10/2016. TECHNIQUE: Full-field digital mammography of the breasts bilaterally consisting of tomosynthesis in MLO and CC projection is performed in the [employer] 2000-D unit. Computer aided detection utilizing the iCAD system was utilized. FINDINGS: The breasts are again seen to be composed of a combination of fatty and moderately dense fibroglandular elements. There is no cluster of microcalcifications, mass, or [...] MLO and CC projection is performed in the[employer] 2000-D unit. Computer aided detection utilizing the [...] for biopsy. PQRI CPT II 3341F Code 51363, 60404 PQRI 225 CPT II 7025F TISSUE DENSITY: The breasts are heterogeneously dense, which may obscuresmall masses. (BI-RADS category C) IMPRESSION: Benign. BI-RADS CATEGORY: 1 - NEGATIVE RECOMMENDATION: Screening bilateral mammogram is recommended in 1 year. Mammo Location: [facility], [address] [place] [id number] -------- FINAL REPORT -------- Dictated By: Ray Durand Dictated Date: 08/11/2024 08:53 ET Assigned Physician: Ray Durand Reviewed and Electronically Signed By: Ray Durand Signed Date: 08/11/2024 08:57 ET Workstation ID: [id number] Transcribed By: Self Edit Transcribed Date: 08/11/2024 08:54 ET us Self Referral Sppl IMG BI PROCEDURES Final Resul t from Last 3 Months or Most Recently Relevant to Health Maintenance Insurance [employer] [facility] Advance Directives Documents on File Type Date Recorded 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
--- OUTSIDE RECORDS SUMMARY | 2025-01-22 07:42 | XMS_ITS | Patient Health Record ---
Author Organization [facility] Address [address] [place] [address] Care Team Providers Care Roll Picker Name Role Phone Carroll Gore MD Primary Care Provider Unavailab Valerio Avila Unavailable [phone] Reason For Referral No Information Medications Medication SIG (Take, Route, Frequency, Duration) Notes Start Date End Date Status Atorvastatin Calcium 20 MG 1 tablet Oral ly Once a day Active Physical Therapy . . . 2-3x/week; Durat ion: 3-4 weeks 07/22/2018 Active Losartan Potassium-HCTZ 100-12.5 MG 1 tablet Orally Once a day Active Social History Tobacco Use: Social History Observation Description Date Details (start date - stop date) Never Smoker NA - NA Tobacco Use/Smoking Question Answer Notes Are you a: nonsmoker Additional Findings: Tobacco Non-User Aggressive non-smoker Alcohol Screen Question Answer Notes Did you have a drink containing alcohol in the p ast year? No Points 0 Interpretation Negative Tobacco use other than smoking: Question Answer Notes Are you an other tobacco user? No Problems Problem Type SNOMED Code ICD Code Onset Dates Problem Status W/U Status Risk Notes Problem Acquired hallux valgus (56772898) Hallux valgus (acquired), left foot (M20.12) Active confirmed Problem Other hammer toe(s) (acquired), left foot (M20.42) Active confirmed Plan Of Treatment Pending Test Test Name Order Date X ray : Foot, left 3V 06/17/2018 Insurance Providers Payer Name Payer Address Payer Phone Subscriber Number Group Number Insured Name Patient Relationship to Insured Coverage Start Date Coverage End Date Kassi [address] Atiya [place], [place] [phone] [id number] Karen Lozada Self - patient is the insured Medical (General) History Medical History History ICD Code CAD (cholesterol) Hypertension Measles Chicken Pox Kidney Disease, only one kidney function s, right side Surgical History Surgery Date(Month/Year) Small Intestine 02/2009
--- OUTSIDE RECORDS SUMMARY | 2025-01-22 07:42 | XMS_ITS | Patient Health Record ---
Author Organization Carroll Gore III, MD Address [address] [place] [address] [place] [address] Care Team Providers Care Toeing Stockings Name Role Phone Carroll Gore Primary Care [...] 1.3 BLD Negative Negative - Menstrating No Lipid Panel Reviewed date:12/15/2024 01:30:33 PM Interpretation: Performing Lab:[facility], [address] [place] [phone] Notes/Report: Triglycerides 116 <150 mg/dL Desirable Triglyceride: less than 150 mg/dL Borderline High Triglyceride 150-199 mg/dL High Triglyceride: 200-499 mg/dL Very High Triglyceride: greater than or equal to 5OO mg/dL Cholesterol 138 <200 mg/dL Desirable Cholesterol: less than 200 mg/dL Borderline High Cholesterol: 200-239 mg/dL High Cholesterol: greater than 239 mg/dL LDL Cholesterol Calculated 71 <100 mg/dL Desirable LDL: less than 100 mg/dL Near Optimal/Above Optimal LDL: 110-129 mg/dL Borderline High LDL: 130-159 mg/dL High LDL: 160-189 mg/dL Very High LDL: greater than or equal to 190 mg/dL HDL Cholesterol 44 >40 mg/dL Desirable HDL: greater than 40 mg/dL Note: This HDL assay may give artificially low results in patients with liver disease. Amylase Reviewed date:12/15/2024 01:30:33 PM Interpretation: Performing Lab:[address] [phone] Notes/Report: Amylase 113 28-100 U/L Lipase Reviewed date:12/15/2024 01:30:33 PM Interpretation: Performing Lab:[address] [phone] Notes/Report: Lipase 68 8-78 U/L Vitamin D 25-OH Total Reviewed date:12/15/2024 01:30:33 PM Interpretation: Performing Lab:[address] [address] Notes/Report: Vitamin D 25-OH Total 50.0 >30 ng/mL Health Based Reference Values* < [...] confirmed with another method such as LC-MS/MS. Complete Blood Count Auto Di ff Reviewed date:05/22/2024 05:49:30 AM Interpretation: Performing Lab:[facility], [address] [place] [phone] Notes/Report: White Blood Count 7.5 4.8-10.8 X10*3/uL [...] 0.0-0.2 /100WBC Neutrophils Absolute Auto 3.6 2.0-8.3 x10*3/uL Imm Gran Abs Auto 0.02 0.00-0.03 X10*3/uL Lymphocytes Absolute Auto 2.9 1.2-4.9 X10*3/uL Monocytes Absolute Auto 0.7 0.1-1.2 X10*3/uL Eosinophils Absolute Auto 0.3 0.0-0.4 X10*3/uL Basophils Absolute Auto 0.0 0.0-0.2 X10*3/uL NRBC Abs Auto 0.000 0.0-0.012 X10*3/uL Comprehensive [place]. Panel Fa st Reviewed date:05/22/2024 05:49:30 AM Interpretation: Performing Lab:[facility], [address] [place] [phone] Notes/Report: Sodium 141 135-145 mmol/L Potassium 3.8 3.3-5.1 mmol/L Chloride 100 96-108 mmol/L Carbon Dioxide 31 22-29 mmol/L Anion Gap 14 12-20 Blood Urea Nitrogen 18 9-16 mg/dL Creatinine 0.91 0.5-1.4 mg/dL Estimated Glomerular Filt Rate > 60 NOTE: For -[place] individuals, multiply the result by 1.210. Chronic [...] Panel Reviewed date:05/22/2024 05:49:30 AM Interpretation: Performing Lab:[facility], [address] [place] [phone] Notes/Report: Triglycerides 277 <150 mg/dL Desirable Triglyceride: [...] ff Reviewed date:10/14/2024 08:01:18 AM Interpretation: Performing Lab:[facility], [address] [place] [phone] Notes/Report: White Blood Count 7.0 4.8-10.8 X10*3/uL [...] 0.0-0.2 /100WBC Neutrophils Absolute Auto 3.1 2.0-8.3 x10*3/uL Imm Gran Abs Auto 0.01 0.00-0.03 X10*3/uL Lymphocytes Absolute Auto 2.9 1.2-4.9 X10*3/uL Monocytes Absolute Auto 0.7 0.1-1.2 X10*3/uL Eosinophils Absolute Auto 0.3 0.0-0.4 X10*3/uL Basophils Absolute Auto 0.0 0.0-0.2 X10*3/uL NRBC Abs Auto 0.000 0.0-0.012 X10*3/uL Comprehensive [place]. Panel Fa st Reviewed date:10/14/2024 08:01:18 AM Interpretation: Performing Lab:[facility], [address] [place] [phone] Notes/Report: Sodium 139 135-145 mmol/L Potassium 3.9 [...] Panel Reviewed date:10/14/2024 08:01:18 AM Interpretation: Performing Lab:[facility], [address] [place] [phone] Notes/Report: Triglycerides 145 <150 mg/dL Desirable Triglyceride: [...] Total Reviewed date:10/14/2024 08:01:18 AM Interpretation: Performing Lab:[address] [phone] Notes/Report: Vitamin D 25-OH Total 50.8 >30 [...] confirmed with another method such as LC-MS/MS. Complete Blood Count Auto Di ff Reviewed date:12/15/2024 01:30:33 PM Interpretation: Performing Lab:[facility], [address] [place] [phone] Notes/Report: White Blood Count 8.4 4.8-10.8 X10*3/uL Red Blood Count 4.32 4.20-5.50 X10*6/uL Hemoglobin 13.7 12.0-16.0 g/dl Hematocrit 38.5 37.0-47.0 % Mean Corpuscular Volume 89.1 80.0-98.0 fL Mean Corpuscular Hemoglobin 31.7 27.0-33.0 pg Mean Corpuscular HGB Conc 35.6 31.0-35.0 g/dl Red Cell Distribution Width 11.7 11.0-16.0 % Platelet Count 306 160-400 X10*3/uL Mean Platelet Volume 10.6 9.4-12.3 fL Neutrophils Percent Auto 48.0 45-73 % Imm Gran Pct Auto 0.1 0.0-0.4 % Lymphocytes Percent Auto 37.1 20-40 % Monocytes Percent Auto 10.0 2-11 % Eosinophils Percent Auto 4.1 0-4 % Basophils Percent Auto 0.7 0-2 % NRBC Pct Auto 0.0 0.0-0.2 /100WBC Neutrophils Absolute Auto 4.0 2.0-8.3 x10*3/uL Imm Gran Abs Auto 0.01 0.00-0.03 X10*3/uL Lymphocytes Absolute Auto 3.1 1.2-4.9 X10*3/uL Monocytes Absolute Auto 0.8 0.1-1.2 X10*3/uL Eosinophils Absolute Auto 0.3 0.0-0.4 X10*3/uL Basophils Absolute Auto 0.1 0.0-0.2 X10*3/uL NRBC Abs Auto 0.000 0.0-0.012 X10*3/uL Comprehensive [place]. Panel Fa st Reviewed date:12/15/2024 01:30:33 PM Interpretation: Performing Lab:[facility], [address] [place] [phone] Notes/Report: Sodium 140 135-145 mmol/L Potassium 3.7 3.3-5.1 mmol/L Chloride 98 96-108 mmol/L Carbon Dioxide 30 22-29 mmol/L Anion Gap 16 12-20 Blood Urea Nitrogen 20 9-16 mg/dL Creatinine 0.92 0.5-1.4 mg/dL Estimated Glomerular Filt Rate > 60 Chronic Kidney Disease: Estimated GFR < 60 mL/min/1.73m2 Severe Kidney Disease: Estimated GFR < 15 mL/min/1.73m2 Glucose Fasting 84 60-99 mg/dL Calcium 10.0 8.4-10.2 mg/dL Bilirubin Total 0.9 0.0-1.0 mg/dL Aspartate Amino Transferase 44 5-31 U/L Alanine Aminotransferase 120 0-31 U/L Total Protein 7.6 6.5-8.0 g/dL Albumin Level 4.6 3.5-5.0 g/dL Alkaline Phosphatase 101 39-117 U/L Gamma Glutamyl Transpeptidas e Reviewed date:12/15/2024 01:30:33 PM Interpretation: Performing Lab:[facility], [address] [place] [phone] Notes/Report: Gamma Glutamyl Transpeptidase 151 7-33 U/L Magnesium Reviewed date:01/19/2025 07:03:12 PM Interpretation: Performing Lab:[facility], [address] [place] [phone] Notes/Report: Magnesium 1.6 1.6-2.6 mg/dL Pathology Reviewed date:01/19/2025 07:03:12 PM Interpretation: Performing Lab:[facility], [address] [place] [address], [place] [address] Notes/Report: ------ Name: Jordon Lozada fadi I Age/Sex: 64/F : 1960 Unit#: [id number] Attend Dr: Parul Wan MD Re01/11/25 Status : [facility] Location: [facility] Disch: ------ SPEC : [id number] RECD : 01/11/25-5 STATUS: CHANDLER REILLY NUM: [id number] KEANU: 01/11/25-1320 [facility] DR: Parul Wan MD ENTERED: 01/11/25-14 32 SP TYPE: Surgical OTHR DR: Carroll Gore MD ORDERED: Gross Micro L3 Diagnosis Gallbladder, cholecystectomy: Acute and chronic cholecystitis with mucosal erosion; cholelithiasis. Clinical History Calculus of gallblad krishan without cholecystitis without obstruction Microscopic Description Microscopic sections reviewed. Material Received Gallbladder Gross Description Received in formalin labeled ?gallbladder? is a 7.0 x 3.5 x 1.0-2.0 cm previously incised, smooth and shaggy, alcantar-pink and blue-green gallbladder resected in continuity with 0.2 cm of cystic duct. Present within the specimen container and within the gallbladder are multiple multifaceted hard bl ack choleliths. The mucosa is finely reticulated, velvety, alcantar-pink and alcantar-green. On sectio devonte the wall is thin and delicate, bile-stained alcantar-green and measures up to 0.1 cm in thic kness. Dining Service Worker sections are submitted in a cassette labeled A1 to include the balwinder n of resection cystic duct. CEDS IHC S/NG Disclaimer NOTE: Unless otherwi se stated, all tissue is formalin-fixed and paraffin-embedded. Some or all of the immunohistochemical tests reported herein may have been developed and their performance characteristics determined by [facility]. They have not been cleared or appr darryn by the U.S. Food and Drug Administration (FDA). However, the FDA has determined that such clearance or approval is not necessary. This laboratory is certified under the Clinical Laboratory Improvement Amendments of 1988 (CLIA) as qualified to perform high comp lexity clinical laboratory testing. CONTINUED ON NEXT PAGE ------ Name: Jordon Lozada I Age/Sex: 64/F : 1960 Unit#: [id number] Attend Dr: Parul Wan MD Re01/11/25 [place] : [facility] [place] [facility] Disch: ------ SPEC : [id number] RECD : 01/11/25-1424 STATUS: CHANDLER REILLY NUM: [id number] KEANU: 01/11/25-[address]: Parul Wan MD ENTERED: 01/11/25-14 32 SP TYPE: Surgical OTHR DR: Carroll Gore MD ORDERED: Gross Micro L3 Copies To: Carroll Gore MD [address] [facility], [address] [place] [address] Parul Wan MD [facility] [address] [place] [address] ------ Signed (signature on file) Carrington Cuadra MD 01/15/25 0759 ------ END OF REPORT Reason For Referral Reason consult and treatmen t for gallstones Diagnosis 1 Calculus of gallblad krishan without cholecystitis without obstruction (K80.20) Referral Organization Carroll Gore III, MD Referring Provider First Name Carroll Referring Provider Last Name Bao Referring Provider Speciality Internal M edicine Referred Provider [facility], [facility] Referred Provider Specialty General Surg kraig General Notes Shea Carney CMA 12/19 03:16:29 PM >Called [phone] spoke to Sola duff patient appt with Dr Wan for 01/01/2025 at 2:45pm . appointment information mailed and called to patient Referral Priority Routine Referral Appointment Date 01/01/2025 Medications Medication SIG (Take, Route, Frequency, Duration) Notes Start Date End Date Status Calcium 1 tab Oral Active Atorvastatin Calcium 20 MG TAKE 1 TABLET BY MOUTH EVERY DAY Active hydroCHLOROthiazide 12.5 MG TAKE 1 TABLE T BY MOUTH EVERY DAY IN THE MORNING Active Losartan Potassium 100 MG TAKE 1 TABLET BY MOUTH EVERY DAY for 90 Active hydroCHLOROthiazide 25 MG TAKE 1 TABLET BY MOUTH 1 TIME EACH DAY. Active Claritin 5 MG 1 tablet Orally as needed Active Vitamin D 25 MCG (1000 UT) 1 tablet Oral ly Once a day Active Immunizations Vaccine Route Administration Date Status [...] Problem Status W/U Status Risk Notes Problem [id number] Hyperlipidemia, unspecified (E78.5) Active confirmed The current fasting lipid profile shows good control of her lipids. No change in her regimen was necessary. Problem 0198119994525 Tinnitus, bilateral (H93.13) Active confirmed The tinnitus is intermittent and mild and is not bothering her at this time. Problem 93332636 Calculus of gallbladder without cholecystitis without obstruction (K80.20) Active confirmed There is no discomfort to palpation of the right side of the abdomen. Problem 11609952 Age-related osteoporosis without current pathological fracture (M81.0) Active confirmed She is rivka g to try alendronate. Problem 417570878 Solitary pulmonary nodule (R91.1) Active confirmed She has one or 2 pulmonary nodules which are small and have not enlarged on serial CT. These will be observed. Problem 40575907 Essential hypertension (I10) Active confirmed Her blood pressure is stable at 129/73. Her weight is in the normal range. No change in her regimen was necessary today. She will be followed carefully. Problem Cholelithiasis (976004801) Cholelithiasis (K80.20) Active confirmed She has known documented gallstones. An ultrasound of the abdomen to assess the gallbladder has been ordered. She will return to the office at once if the pain returns. Problem 19948402 Other and unspecified ovarian cyst (N83.20) Active confirmed She has seen her power plant operator apprentice recently and is being followed for this problem. She is asymptomatic. Problem Vitamin D deficiency (56762199) Vitamin D deficiency (E55.9) Active confirmed The current vitamin D level is in the normal range. No change in her dosage was necessary. Problem 993956331 Herpes zoster without complication (B02.9) Active confirmed She is responding very well to the medication with a loss of erythema and a reduction in pain and no new lesions. She will finish the medication. Problem 22082652 Hydronephrosis, unspecified hydronephrosis type (N13.30) Active confirmed The recent images are stable and her renal function function has improved slightly. She is known to have hydronephrosis of the left kidney likely due to the mesenteric fibrosis for which she had surgery in 2008 Problem 613790536 Diverticulitis (K57.92) Active confirmed His diverticulitis has resolved and she has resumed a normal activities of living. Problem 07124990 Mesenteric fibrosis (K65.8) Active confirmed She has had no further episodes of abdominal pain or fibrosis in any location. Observation and surveillance will continue. Problem Hydroureter, left (N13.4) Active confirmed This days from her surgery for mesenteric fibrosis. The left kidney has become atrophic Problem 96580090 Gallstone pancreatitis (K85.10) Active confirmed This is likely why she had right upper quadrant abdominal pain back pain and elevated amylase. If blood work is pending. She is known to have cholelithiasis. Vital Signs Heart Rate 66 /min 12/07/2024 Temperature 97.3 degrees Fahrenheit 12/07/2024 Blood pressure diastolic 73 mm Hg 12/07/2024 Height 59 in 12/07/2024 Blood pressure systolic 129 mm Hg 12/07/2024 Weight 114 lbs 12/07/2024 BMI 23.02 kg/m2 12/07/2024 Encounters Encounter Location Date Provider Diagnosis Carroll Gore III, MD [address] [place] [address] [place] [phone] 04/21/2024 Carroll Gore Vitamin D deficiency E55.9 ; Mesenteric fibrosis K65.8 ; Hyperlipidemia, unspecified E78.5 ; Essential hypertension I10 and Tinnitus, bilateral H93.13 Carroll Gore III, MD [address] [place] [address] [place] [phone] 10/20/2024 Carroll Gore Essential hypertensi on I10 ; Hyperlipidemia, unspecified E78.5 ; Vitamin D deficiency E55.9 ; Calculus of gallbladder without cholecystitis without obstruction K80.20 ; Age-related osteoporosis without current pathological fracture M81.0 ; Hydroureter, left N13.4 and Cholelithiasis K80.20 Carroll Gore III, MD [address] [place] [address] [place] [address] 12/07/2024 Carroll Gore Essential hypertensi on I10 ; Acute upper abdominal pain R10.10 ; Other and unspecified ovarian cyst N83.20 ; Calculus of gallbladder without cholecystitis without obstruction K80.20 ; Tinnitus, bilateral H93.13 ; Mesenteric fibrosis K65.8 ; Vitamin D deficiency E55.9 and Hydroureter, left N13.4 Carroll Gore III, MD [address] [place] [address] [place] [address] 12/15/2024 Carroll Gore Gallstone pancreatit is K85.10 ; Hydronephrosis, unspecified hydronephrosis type N13.30 ; Other and unspecified ovarian cyst N83.20 ; Calculus of gallbladder without cholecystitis without obstruction K80.20 ; Tinnitus, bilateral H93.13 ; Essential hypertension I10 ; Solitary pulmonary nodule R91.1 ; Mesenteric fibrosis K65.8 and Age-related osteoporosis without current pathological fracture M81.0 Carroll Gore III, MD [address] [place] [address] [place] [phone] 07/03/2024 Carroll Gore III, MD [address] [place] [address] [place] [phone] 12/04/2024 Carroll Gore III, MD [address] [place] [address] [place] [phone] 12/19/2024 Carroll Gore III, MD [address] [place] [address] [place] [address] 01/02/2025 Carroll Gore Assessments Encounter Date Diagnosis (ICD Code) Assessment Notes Treat ment Notes Treatment Clinical Notes 04/21/2024 Vitamin D deficiency (ICD-10 - E55.9) [...] necessary today. As will be followed carefully. 12/07/2024 Essential hypertension (ICD-10 - I10) Her blood pressure is stable at 129/73. Her weight is in the normal range. No change in her regimen was necessary today. She will be followed carefully. 12/07/2024 Acute upper abdominal pain (ICD-10 - R10.10) The elevation of the lipase just all times. She does describe a pain that went into her back and upper abdomen. She is asymptomatic today. Liver function tests are elevated. Blood work will be repeated to see if they are normalized. Amylase will be ordered and the lipase will be repeated. She may need a surgical consultation 12/15/2024 Hydronephrosis, unspecified hydronephrosis type (ICD-10 - N13.30) The recent images are stable and her renal function function has improved slightly. She is known to have hydronephrosis of the left kidney likely due to the mesenteric fibrosis for which she had surgery in 200812/15/2024 Gallstone pancreatitis (ICD-10 - K85.10) This is likely why she had right upper quadrant abdominal pain back pain and elevated amylase. If blood work is pending. She is known to have cholelithiasis. 04/21/2024 Hyperlipidemia, unspecified (ICD-10 - E78.5) A fasting lipid profile done April 18, 2024 shows a total cholesterol of 192 triglycerides 277 and LDL 95. We have discussed diet and nutrition at length. 10/20/2024 Vitamin D deficiency (ICD-10 - E55.9) The current vitamin D level is in the normal range. No change in her dosage was necessary. 12/07/2024 Other and unspecified ovarian cyst (ICD-10 - N83.20) She has seen her power plant operator apprentice recently and is being followed for this problem. She is asymptomatic. 12/15/2024 Other and unspecified ovarian cyst (ICD-10 - N83.20) She has seen her power plant operator apprentice recently and is being followed for this problem. She is asymptomatic. 04/21/2024 Essential hypertension (ICD-10 - I10) Her blood pressure is stable and controlled the no change in her regimen was needed today. 10/20/2024 Calculus of gallbladder without cholecystitis without obstruction (ICD-10 - K80.20) There is no discomfort to palpation of the right side of the abdomen. 12/07/2024 Calculus of gallbladder without cholecystitis without obstruction (ICD-10 - K80.20) There is no discomfort to palpation of the right side of the abdomen. 12/15/2024 Calculus of gallbladder without cholecystitis without obstruction (ICD-10 - K80.20) There is no discomfort to palpation of the right side of the abdomen. 04/21/2024 Tinnitus, bilateral (ICD-10 - H93.13) The tinnitus is intermittent and mild and is not bothering her at this time. 10/20/2024 Age-related osteoporosis without current pathological fracture (ICD-10 - M81.0) She is going to try alendronate. 12/07/2024 Tinnitus, bilateral (ICD-10 - H93.13) The tinnitus is intermittent and mild and is not bothering her at this time. 12/15/2024 Tinnitus, bilateral (ICD-10 - H93.13) The tinnitus is intermittent and mild and is not bothering her at this time. 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 The left kidney has become atrophic 12/07/2024 Mesenteric fibrosis (ICD-10 - K65.8) She has had no further episodes of abdominal pain or fibrosis in any location. Observation and surveillance will continue. 12/15/2024 Essential hypertension (ICD-10 - I10) Her blood pressure is stable at 129/73. Her weight is in the normal range. No change in her regimen was necessary today. She will be followed carefully. 10/20/2024 Cholelithiasis (ICD-10 - K80.20) She has known documented gallstones. An ultrasound of the abdomen to assess the gallbladder has been ordered. She will return to the office at once if the pain returns. 12/07/2024 Vitamin D deficiency (ICD-10 - E55.9) The current vitamin D level is in the normal range. No change in her dosage was necessary. 12/15/2024 Solitary pulmonary nodule (ICD-10 - R91.1) She has one or 2 pulmonary nodules which are small and have not enlarged on serial CT. These will be observed. 12/07/2024 Hydroureter, left (ICD-10 - N13.4) This days from her surgery for mesenteric fibrosis. The left kidney has become atrophic 12/15/2024 Mesenteric fibrosis (ICD-10 - K65.8) She has had no further episodes of abdominal pain or fibrosis in any location. Observation and surveillance will continue. 12/15/2024 Age-related osteoporosis without current pathological fracture (ICD-10 - M81.0) She is going to try alendronate. Plan Of Treatment Pending Test Test Name Order Date PROFILE, FASTING (COMPREHENSIVE METABOLI C) 12/21/2023 PROFILE, FASTING (COMPREHENSIVE METABOLI C) 12/07/2024 PROFILE, FASTING (COMPREHENSIVE METABOLI C) 11/18/2021 PROFILE, FASTING (COMPREHENSIVE METABOLI C) 10/20/2024 PROFILE, FASTING (COMPREHENSIVE METABOLI C) 06/20/2020 PROFILE, FASTING (COMPREHENSIVE METABOLI C) 06/26/2022 PROFILE, FASTING (COMPREHENSIVE METABOLI C) 04/21/2024 PROFILE, FASTING (COMPREHENSIVE METABOLI C) 01/11/2020 PROFILE, FASTING (COMPREHENSIVE METABOLI C) 02/20/2022 PROFILE, RANDOM (COMPREHENSIVE METABOLIC ) 03/19/2020 PROFILE, RANDOM (COMPREHENSIVE METABOLIC ) 12/15/2024 PROFILE, RANDOM (COMPREHENSIVE METABOLIC ) 01/26/2022 LIPID PANEL 06/20/2020 LIPID PANEL 06/26/2022 LIPID PANEL 01/11/2020 GGT 12/07/2024 GGT 12/15/2024 LDH 01/26/2022 CPK 01/26/2022 CBC w DIFF 06/20/2020 CBC w DIFF 06/26/2022 CBC w DIFF 01/11/2020 CBC w DIFF 02/20/2022 CBC w DIFF 12/15/2024 CBC w DIFF 12/21/2023 CBC w DIFF 11/18/2021 CBC w DIFF 03/19/2020 CBC w DIFF 01/26/2022 CBC w DIFF 12/07/2024 CBC w DIFF 10/20/2024 SED RATE (ESR) 01/26/2022 URINE CULTURE 04/05/2023 BONE DENSITY DEXA 11/18/2021 MAMMOGRAM DIGITAL BILATERAL SCREEN 08/31 MAMMOGRAM DIGITAL BILATERAL SCREEN 11/12 MAMMOGRAM DIGITAL BILATERAL SCREEN 09/29 US ABD 11/13/2022 US BREAST LEFT 01/20/2023 US BREAST RIGHT 01/20/2023 CBC WITH AUTO DIFF 04/21/2024 Lipid Panel 04/21/2024 Lipid Panel 02/20/2022 Lipid Panel 12/21/2023 Lipid Panel 11/18/2021 Lipid Panel 10/20/2024 Amylase 12/15/2024 Lipase 12/15/2024 Vitamin D 25-OH Total 10/20/2024 Vitamin D 25-OH Total 04/21/2024 Vitamin D 25-OH Total 02/20/2022 Urine Culture 07/02/2023 Routine Culture 09/15/2023 Next Appt Details Provider Name:Carroll Gore, 01/24/2025 03:30:00 PM, [address] [place] [address] [address], [place], [address], Provider Name:Carroll Gore, 02/20/2025 04:00:00 PM, [address] [place] [address] [address], [place], [address], Provider Name:Carroll Gore, 10/22/2025 04:00:00 PM, [address] [place] [address] [address], [place], [address], Insurance Providers Payer Name Payer Address Payer Phone Subscriber Number Group Number Insured Name Patient Relationship to Insured Coverage Start Date Coverage End Date Blue Benefits Administ[employer] [facility] [address] [address] [place] [address] [id number] Karen Lozada Self - patient is the insured Medical (General) History Medical History History ICD Code hypertension mesenteric fibromatosis left hydronephrosis gallstones 2.5 cm right ovarian cyst 5 mm left lower lobe pulmonary nodule Surgical History Surgery Date(Month/Year) No history laparotomy for mesenteric fibrosis /2008 Hospitalization History Reason Date(Month/Year) No history
--- OUTSIDE RECORDS SUMMARY | 2025-01-22 07:42 | XMS_ITS | Patient Health Record ---
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 Oral; Duration: 90 Days Active Anusol-HC 2.5 % 1 application to affected area Rectal Twice a day as needed; Duration: 30 day(s) 02/07/2021 Active Calcium 500 MG 1 tablet with meals Orally Twice a day Active Atenolol 25 MG 1 tablet Orally Once a day; Duration: 30 day(s) Active Claritin 10 MG 1 [...] Status Risk Notes Problem Postmenopausal atrophic vaginitis (32042273) Postmenopausal atrophic vaginitis (N95.2) Active confirmed Problem Age-related osteoporosis (297508337) Age-related osteoporosis without current pathological fracture (M81.0) Active confirmed Problem Screening for malignant neoplasm of breast (076470057) Encounter for screening mammogram for malignant neoplasm of breast (Z12.31) Active confirmed Problem History of dysplasia of cervix (101807267) Personal history of cervical dysplasia (Z87.410) Active confirmed Problem Carcinoid syndrome (69090967) Carcinoid syndrome (259.2) Active confirmed Major Problem Hyperlipidemia (74047279) Other and unspecified hyperlipidemia (272.4) Active confirmed Major Problem Essential hypertension (39917628) Unspecified essential hypertension (401.9) Active confirmed Major Problem Urinary tract infectious disease (disorder) (79795784) Urinary tract infection, site not specified (599.0) Active confirmed Diag Problem Metrorrhagia (11914103) Metrorrhagia (626.6) Active confirmed Major Vital Signs Temperature 97.9 degrees Fahrenheit 02/29/2024 Blood pressure diastolic 80 mm Hg 02/29/2024 Height 58 in 02/29/2024 Blood pressure systolic 128 mm Hg 02/29/2024 Weight 119 lbs 02/29/2024 BMI 24.87 kg/m2 02/29/2024 Encounters Encounter Location Date Provider Diagnosis Total [address] [place] [address] 02/29/2024 Lizette Cabral Encounter for gynecological examination [...] MAMMOGRAM, SCREENING 02/17/2023 MAMMOGRAM, SCREENING 02/29/2024 Urinalysis 02/07/2021 Urinalysis 02/02/2020 25OH VITAMIN D 02/10/2022 COMPREHENSIVE METABOLIC PANEL 02/10/2022 N-TELOPEPTIDE CROSS 02/10/2022 PTH, INTACT 02/10/2022 THIN PREP,HPV,BARRY IF HPV+ (>29YR)(SCRN) 11/04/2017 THIN PREP,HPV,BARRY IF HPV+/CYT- (>29YR)( SCRN) 10/26/2016 TSH 02/10/2022 BONE DENSITY 02/29/2024 MM Digital Mammo Screening 02/29/2024 MM Digital Mammo Screening 02/17/2023 MM Digital Mammo Screening 02/07/2021 MM Digital Mammo Screening 02/10/2022 MM Digital Mammo Screening 12/21/2018 MM Digital Mammo Screening 02/02/2020 MM Digital Mammo Screening 10/26/2016 Next Appt Details Provider Name:Lizette barbosa, 03/06/2025 08:00:00 AM, [address] [facility], [address], [place], [address], Insurance Providers Payer Name Payer Address Payer Phone Subscriber Number Group Number Insured Name Patient Relationship to Insured Coverage Start Date Coverage End Date [employer] [place] [address] [address] [place] [address] [id number] ASHLEY LITTLE Self - patient is [...]
[2025-01-22 07:56] LABS: MANUAL DIFF FLAG NO
[2025-01-22 08:51] LABS: Hematocrit 36.5 % (37.0-47.0); Hemoglobin 13.3 g/dl (12.0-16.0); Imm Gran Abs Auto 0.01 X10*3/uL (0.00-0.03); Imm Gran Pct Auto 0.2 % (0.0-0.4); Lymphocytes Absolute Auto 2.3 X10*3/uL (1.2-4.9); Mean Corpuscular HGB Conc 36.4 g/dl (31.0-35.0); Mean Corpuscular Hemoglobin 31.7 pg (27.0-33.0); Mean Corpuscular Volume 87.1 fL (80.0-98.0); NRBC Abs Auto 0.000 X10*3/uL (0.0-0.012); NRBC Pct Auto 0.0 /100WBC (0.0-0.2); Platelet Count 291 X10*3/uL (160-400); Red Blood Count 4.19 X10*6/uL (4.20-5.50); White Blood Count 6.2 X10*3/uL (4.8-10.8)
[2025-01-22 10:24] LABS: Alanine Aminotransferase 44 U/L (0-31); Albumin Level 4.2 g/dL (3.5-5.0); Alkaline Phosphatase 82 U/L (39-117); Amylase 109 U/L (28-100); Anion Gap 13 (12-20); Aspartate Amino Transferase 35 U/L (5-31); Blood Urea Nitrogen 27 mg/dL (9-16); Calcium 10.3 mg/dL (8.4-10.2); Carbon Dioxide 31 mmol/L (22-29); Chloride 101 mmol/L (96-108); Estimated Glomerular Filt Rate 56; Gamma Glutamyl Transpeptidase 40 U/L (7-33); Lipase 72 U/L (8-78); Potassium 4.1 mmol/L (3.3-5.1); Sodium 141 mmol/L (135-145); Total Protein 7.0 g/dL (6.5-8.0)
== END 2025-01-22 07:40 | disposition home or self-care (01) ==
LOC: HO.LAB 07:39
PROVIDERS: PCP Internal Medicine Medical Oncology; Visit Provider Internal Medicine Medical Oncology
DX: K80.20 Calculus of gallbladder without cholecystitis without obstruction (principal); E87.5 Hyperkalemia; K80.80 Other cholelithiasis without obstruction
CPT/HCPCS: 36415; 80053; 82150; 82977; 83690; 85025

== ENCOUNTER 2025-01-23 09:20 | Outpatient (AMB) | payer OTHER, SELFPAY ==
--- NOTE | 2025-01-23 09:25 | A.OFFVIS_ITS ---
Vital Signs 01/23/25 09:31 Height 4 ft 11 in Weight 112 lb 2 oz BMI 22.6 BP 131/63 Blood Pressure Location Lt brachial Position Sitting Pulse 68 Intake Visit Reasons: S/P lap aurelia Intake Note: Patient is seen in office for post op assessment post Laparoscopic cholecystectomy. Pt c/o:admits to sore and tender, denies n/v/d/c, is eating as expected surgery:01/11/25 Clock And Watch Hands Dipper Required: No Accompanied by: Self / Same As Patient Allergies nitrofurantoin Allergy (Unknown, Verified 01/23/25 09:25) Unknown alendronate sodium Allergy (Verified 01/23/25 09:25) Unknown HPI Comments Details: 64-year-old female patient returning 1 week following laparoscopic cholecystectomy performed on 01/11/2025. She reports approximately 3 days of incisional and right shoulder pain after which the pain is much improved. She denies any current nausea, vomiting, fever or chills. She is eating well and reports gaining some weight since the surgery. [facility] Medical History Symptomatic cholelithiasis Carcinoid tumor Surgical History Hx laparoscopic cholecystectomy (01/11/25) S/P small bowel resection Social History Patient Tobacco Use Status: Never used Tobacco Physical Exam Const General: no acute distress Nutritional Appearance: well nourished Orientation/consciousness: patient oriented x3 Eyes Sclerae: sclerae normal GI Other: Trocar incisions are clean, dry, and intact without redness or discharge. Steri-Strips remain intact. Skin General skin exam: no rashes or lesions noted Neuro General: patient oriented x3 Assessment & Plan Assessment & Plan (1) Symptomatic cholelithiasis: Code(s): K80.20 - Calculus of gallbladder without cholecystitis without obstruction Category: Medical Plan 64-year-old female status post laparoscopic cholecystectomy for symptomatic cholelithiasis on 01/11/2025. She tolerated the procedure well and her wounds are healing nicely. She should continue to avoid fatty/fried foods for the next 4 weeks and avoid lifting greater than 10 lb for the next week. She should call for any new concerns or questions. Coding Level of Care Code Global (98053) Diagnoses Symptomatic cholelithiasis K80.20
[2025-01-23 09:31] VITALS: BP 131/63; PULSE 68; BMI 22.6
--- OUTSIDE RECORDS SUMMARY | 2025-01-23 09:46 | XMS_ITS | Clinical Summary ---
Author Organization [facility] Address [address] [place] [address] Phone Care Team Providers Care Ticket Scheduler Name Role Phone Unavailable Primary Care Provider [...] Patients (1 - 1-dose 75+ series) 2036 Zoster Vaccines Completed 05/12/2019, 02/19/2019 HIB Vaccines [...] for biopsy. PQRI CPT II 3341F Code 25302, 81386 PQRI 225 CPT II 7025F TISSUE DENSITY: The breasts are heterogeneously dense, which may obscure small masses. (BI-RADS category C) IMPRESSION: Benign. BI-RADS CATEGORY: 1 - NEGATIVE RECOMMENDATION: Screening bilateral mammogram is recommended in 1 year. Mammo Location: [facility], [address] [place] [id number] -------- FINAL REPORT -------- Dictated By: Ray Durand Dictated Date: 08/11/2024 08:53 ET Assigned Physician: Ray Durand Reviewed and Electronically Signed By: Ray Durand Signed Date: 08/11/2024 08:57 ET Workstation ID: [id number] Transcribed By: Self Edit Transcribed Date: 08/11/2024 08:54 ET Narrative 08/11/2024 8:57 AM EST CLINICAL: The patient is a 63 years Female presenting for routine screening mammography. COMPARISON: Most recently 07/15/2023 and most remotely 09/10/2016. TECHNIQUE: Full-field digital mammography of the breasts bilaterally consisting of tomosynthesis in MLO and CC projection is performed in the [employer]act [employer]icle [employer] 2000-D unit. Computer aided detection utilizing the [...] MLO and CC projection is performed in the[employer] ([employer] 2000-D unit. Computer aided detection utilizing the [...] for biopsy. PQRI CPT II 3341F Code 31170, 83049 PQRI 225 CPT II 7025F TISSUE DENSITY: The breasts are heterogeneously dense, which may obscuresmall masses. (BI-RADS category C) IMPRESSION: Benign. BI-RADS CATEGORY: 1 - NEGATIVE RECOMMENDATION: Screening bilateral mammogram is recommended in 1 year. Mammo Location: [facility], [address] [place] [id number] -------- FINAL REPORT -------- Dictated By: Ray Durand Dictated Date: 08/11/2024 08:53 ET Assigned Physician: Ray Durand Reviewed and Electronically Signed By: Ray Durand Signed Date: 08/11/2024 08:57 ET Workstation ID: [id number] Transcribed By: Self Edit Transcribed Date: 08/11/2024 08:54 ET us Self Referral Sppl IMG BI PROCEDURES Final Resul t from Last 3 Months or Most Recently Relevant to Health Maintenance Insurance [facility] Advance Directives Documents on File Type Date Recorded 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
--- OUTSIDE RECORDS SUMMARY | 2025-01-23 09:46 | XMS_ITS | Clinical Summary ---
Author Organization [facility] Address [address] [place] [phone] Phone Care Team Providers Care Offal Trimmer Name Role Phone Carroll Gore MD Primary Care Provider [phone] Allergies Active Allergy Reactions Criticality Noted Date [...] Office Visit [facility] [address] [address] Oracio Vital MD Stage 3a chronic kidney disease (HCC) (Primary Dx); Simple renal cyst; Hypertension; Nephrolithiasis; Dyslipidemia; Obstructive nephropathy 11/23/2024 Orders Only [facility] [address] [address] Oracio Vital MD from Last 3 Months [...] order comments [place] [address] * (ABNORMAL) Urinalysis with microscopic (11/23/2024 12:03 PM EDT) Color Urine Yellow See orde r comments Appearance Urine Clear See order comments pH Urine 7.0 5.0 - 9.0 See order comments Glucose Urine Negative Negative mg/dL See order comments Blood, Urine Negative Negative See ord er comments Specific [place] Urine 1.010 1.005 - 1.025 See order [...] ORDERABLES Final Re sult Performing Organization Address [facility] de Phone Number TERRY See order comments [place] [address] * PTH, Intact (11/23/2024 11:39 AM EDT) Parathyroid Hormone, Intact 45.2 8.7 - 77.1 pg/mL See order comments 11/23/2024 11:3 9 AM EDT 11/23/2024 11:39 AM EDT Oracio Vital MD LAB [id number] SOLICITED RESULTS Final Result Performing Organization Address [facility] de Phone Number TERRY See order comments [place] [address] * Vitamin D 25 Hydroxy (11/23/2024 11:39 [...] order comments [place] [address] * (ABNORMAL) CBC and Differential (11/23/2024 11:39 [...] ORDERABLES Final Re sult Performing Organization Address [facility] de Phone Number [facility] See order comments [place] [address] * Uric Acid (11/23/2024 11:39 AM EDT) Uric Acid 5.7 2.4 - 5.7 mg/dL See order comments 11/23/2024 11:3 9 AM EDT 11/23/2024 11:39 AM EDT us Oracio Vital MD LAB BLOOD ORDERABLES Final Re sult Performing Organization Address [facility] Phone Number [place] See order comments [place] [address] * Phosphorus (11/23/2024 11:39 AM EDT) Phosphorus, Serum 2.9 2.7 - 4.5 mg/dL See order comments 11/23/2024 11:3 9 AM EDT 11/23/2024 11:39 AM EDT us Oracio iVtal MD LAB BLOOD ORDERABLES Final Re sult Performing Organization Address [facility] de Phone Number [place] See order comments [place] [address] * (ABNORMAL) Magnesium (11/23/2024 11:39 AM EDT) [...] order comments [place] [address] * (ABNORMAL) Comprehensive Metabolic Panel (11/23/2024 11:39 [...] Final Re sult Performing Organization Address City/[facility]/ZIP Co de Phone Number [facility] See order comments [place] [address] from Last 3 Months Insurance Comprehensive Benefits Comprehensive Benefits Care Teams Offal Trimmer Relationship Specialty Start Date End Date Carroll Gore MD [address] [place] [address] [phone] [place], [place] PCP - General 07/29/20
== END 2025-01-23 09:44 | disposition home or self-care (01) ==
LOC: HO.HGS 09:20
PROVIDERS: PCP Internal Medicine Medical Oncology; Visit Provider Surgery
DX: K80.20 Calculus of gallbladder without cholecystitis without obstruction (principal)
CPT/HCPCS: 99024